=== PATIENT | female | born 1955 | race Caucasian/White ===

== ENCOUNTER 2024-10-14 14:50 | Outpatient (AMB) | payer MEDICARE, SELFPAY ==
--- NOTE | 2024-10-14 15:05 | MHC.OFFVIS ---
Vital Signs 10/14/24 15:08 Height 5 ft 2.5 in Weight 153 lb 3.54 oz BMI 27.6 BP 102/60 Blood Pressure Location Lt brachial Position Sitting Pulse 74 Pulse Source Pulse Oximeter Pulse Oximetry (%) 99 Oxygen Delivery Method Room Air Intake Visit Reasons: Abnormal CT/Pulmonary Nodule Allergies infliximab [From Remicade] Allergy (Severe, Verified 10/14/24 15:12) liver failure adalimumab [From Humira] Allergy (Intermediate, Verified 10/14/24 15:12) liver failure HPI Comments Details: The patient is here for pulmonary evaluation. The patient is a 69 year woman with a history of mild intermittent asthma in addition to colitis on Rinvoq who apparently was in her usual state health until back in August when she started developing worsening respiratory symptoms. The patient did undergo viral testing and she did test positive for RSV. In addition to that she did have a CTA which I personally reviewed at [facility] back on 08/31/2024 demonstrating multiple areas of pulmonary nodules. In addition to that some degree of mosaic pattern from pneumonitis and her bronchiolitis. I also did compare to the CT scan that she had back in 2019 of the abdomen with lung cuts appear much clear with a slight nodular density in the left lower lobe. The largest nodule measuring 7 mm in size. Therefore, will plan to repeat the CT scan in 6 months from the last CT scan. Clinically the patient is doing well she still uses her inhaler once or twice a day. I did offer her maintenance inhaler, but, she feels like she is getting better and feels like the regular inhaler is enough at this time. If her symptoms were to worsen she can always call and we can provide her maintenance inhaler at that time. [facility] Medical History (Updated 10/14/24 @ 15:45 by Tee Young MD) Pulmonary nodules Social History (Updated 10/14/24 @ 15:12 by Jenniffer Machado CMA) Patient Tobacco Use Status: Former Tobacco user Review of Systems Const Denies fever(s) Eyes Reports no additional complaints ENT Reports no additional complaints and Reports neck pain Card Denies chest pain Resp Reports cough and Reports wheezing GI Reports as per HPI Musc Reports back pain and Reports neck pain Skin/Breast Denies rash Neuro Reports no additional complaints Nathan/Lymph Reports no additional complaints Aller/Immun Reports wheezing Physical Exam Vital Signs: Last Vital Signs Pulse 74 10/14/24 15:08 BP 102/60 10/14/24 15:08 Pulse Ox 99 10/14/24 15:08 Oxygen Delivery Method Room Air 10/14/24 15:08 BMI result Body Mass Index 27.6 Const General: comfortable HEENT Head: Yes normocephalic Neck Neck: Yes supple Chest Chest palpation & inspection: normal inspection of the chest Resp Effort & Inspection: normal respiratory effort Auscultation: clear to auscultation bilaterally Cardio Heart sounds: S1 normal heart sound present and S2 normal heart sound present GI Palpation (GI): Soft to palpation Skin General skin exam: no rashes or lesions noted Extrem General: No clubbing and No cyanosis Assessment & Plan Assessment & Plan (1) Pulmonary nodules: Code(s): R91.8 - Other nonspecific abnormal finding of lung field Category: Medical Plan Repeat CT chest in 4 months F/U 4 months Orders: Orders CT chest wo IV con 4 Months R91.8 - Other nonspecific abnormal finding of lung field Coding Level of Care Code New Pt Level 4 (22629) Diagnoses Pulmonary nodules R91.8 Time Spent (min) 40
[2024-10-14 15:08] VITALS: BP 102/60; PULSE 74; O2SAT 99; BMI 27.6
--- OUTSIDE RECORDS SUMMARY | 2024-10-14 16:16 | XMS_ITS | Encounter Summary ---
Author Organization [facility] Address [address] [place] [address] Care Team Providers Care Silverware Assembler Name Role Phone Jed Brown MD Primary Care Provider + [phone] Reason for Visit * Auth/Cert (Routine) Specialty Diagnoses / Procedures Referred By Contac t Referred To Contact Diagnoses Spinal stenosis, cervical region CERVICAL SPINAL STENOSIS Procedures [facility] SP CORD WO FACETECTOMY/FORAMINOTOMY/DISC ECTOMY 1 OR 2 VERT SEGM CERV C4-5 posterior decompression Lizett Bradford MD [address] [place] [address] Phone: tel: fax: [facility] OR [address] [place] [id number] Phone: tel: Referral ID Status Reason Start Date Expiration Date Visits Re quested Visits Authorized [id number] 1 1 Encounter Details Date Type Department Care Team (Late st Contact Info) Description 09/26/2024 9:30 AM EST - 09/26/2024 11:30 AM EST Surgery [facility] Main OR [address] [place] [address] Lizett Bradford MD [address] [place] [address] C4-5 posterior decompression [03312 (CPT??)] Surgery Details Date/Time Status Location OR Service Patient Class Case Cl ass Case Type Trauma Case? 09/26/2024 9:30 AM Posted [facility] OR OR Neurosurgery Hospital Outpatient Surgery F - Elective Panel 1 Procedure LRB Anes Op Region Wound Class Comments C4-5 posterior decompression N/A general Spine Cervi santa Class I/ Clean Surgeon Surgeon Role Service Panel Lizett Bradford MD Primary Neurosurgery 1 Case Notes C-arm, midas, chest rolls documented in this encounter Social History Tobacco Use Types Packs/Day Years Used Date Smoking Tobacco: Former Smokeless Tobacco: Never Interpersonal Safety Answer Date Record ed Physical Abuse 09/26/2024 Verbal Abuse 09/26/2024 Comments No Sex and Gender Information Value Date Recorded Sex Assigned at Female 07/18/2024 10:24 AM EST Legal Sex Female 4:11 AM EST Gender Identity Female 07/18/2024 10:24 AM EST Sexual Orientation Straight 07/18/2024 10 :24 AM EST documented as of this encounter Last Filed Vital Signs Vital Sign Reading Time Taken Comments Blood Pressure 134/76 09/26/2024 7:56 AM EST Pulse 72 09/26/2024 7:56 AM EST Temperature 36.5 ??C (97.7 ??F) 09/26/2024 7:56 AM ES T Respiratory Rate 16 09/26/2024 7:56 AM EST Oxygen Saturation 100% 09/26/2024 7:56 AM EST Inhaled Oxygen Concentration - - Weight 67.1 kg (148 lb) 08/29/2024 9:00 AM EST Height 160 cm (5' 3 ) 08/29/2024 9:00 AM EST Body Mass Index 26.22 08/29/2024 9:00 AM EST documented in this encounter Discharge Instructions * Discharge Instructions* JADYN Gonzales - 09/26/2024 12:13 PM EST Ivelisse, I am unable to change the printed handout directions, but please only take your Dilaudid (hydromorphone) prescribed by your pain management doctor, do not take both prescriptions together. Please call the office to schedule your postop appointment for 10-14 days, #[phone]. Call withany concerns or questions, like wound redness, drainage, fevers, increasing pain or weakness. After your surgery we ask you to observe the following restrictions/guidelines: Activity: It is normal to feel some incisional pain or discomfort as you increase your activity, but that will improve with time. We ask you avoid heavy lifting or activities that cause pain. As a general rule, 8lbs is a safe limit for lifting right after surgery (approximately a gallon of milk). Walk as much as you feel comfortable but not to exhaustion. You will feel extra tired the first fewdays after surgery. Stay well hydrated. It is OK to walk up and down stairs a few times a day. You may return to driving when you are off narcotics (such as vicodin, oxycodone, dilaudid, etc), and you are back to normal functional capacity, and able to look in both directions. If you have any concerns please check with office before driving. Return to work is specific to each patient and each surgery, so please speak with your doctor/PA atfirst follow up. Please bring paperwork such as FMLA at that time if you need it filled out. Follow up: Please call the office, , after surgery to arrange a 10 day follow up for wound check. Wound Care: We generally ask that you keep your wound covered for the first 3 days after surgery. If you have kiara or sutures, please call the office when you get home to arrange follow up in 10 days to arrange removal of kiara/sutures. You may shower on post op day # 3 after removing your dressing. We ask that you do not let the water soak the wound. If it does get wet, just towel dry lightly. Please do not scrub your incision or place any type of chemical/ointment on the wound. No tub bath's, pools or jacuzzi's for one month. Medications: We will give you a short supply of narcotics after surgery (usually one week's worth). If you need more please call the office but do not use more than prescribed. If you are on a narcotic, it is a good idea to take a stool softener such as colace or senna to avoid constipation If you take blood thinner such as aspirin, Plavix, Coumadin, Effient, Eliquis etc for conditions such as Afib, DVT, Pulmonary embolus, coronary disease, stents etc please speak with your surgeon about specific details as to when you can resume these medications. If you take NSAID's such as Celebrex, Naproxen, Motrin, Aleve, Meloxicam etc we generally allow youto resume these on post op day 7, but if you had a spinal fusion please check with your surgeon before resuming these medications. * Attachments The following attachments cannot be sent through Care Everywhere. * Cervical Spinal Stenosis (Croatian) * General Anesthesia (Croatian) documented in this encounter Medications at Time of Discharge acetaminophen (TYLENOL 8 HOUR) 650 mg 8 hr tablet Take 2 Tablets by mouth. albuterol HFA (PROAIR HFA ; PROVENTIL HFA ; VENTOLIN HFA) 90 mcg/actuation inhaler Inhale 2 puffs by mouth every 6 (six) hours if needed for wheezing. alendronate (FOSAMAX) 35 mg tablet 1 Tablet. 08/24/2023 cholecalciferol (VITAMIN D-3) 25 mcg (1,000 unit) capsule Take 1 Capsule by mouth. cyanocobalamin (VITAMIN B-12) 100 mcg tablet Take 1 tablet (100 mcg total) by mouth 2 (two) times a day. cyproheptadine (PERIACTIN) 4 mg tablet Take 1 tablet (4 mg total) by mouth 2 (two) times a day if needed. famotidine (PEPCID) 20 mg tablet Take 1 Tablet by mouth. 09/20/2023 furosemide (LASIX) 20 mg tablet or 30 days 02/29/2024 HYDROmorphone (DILAUDID) 2 mg tablet TAKE 1 TABLET EVERY 4 TO 6 HOURS NEEDED. 11/07/2013 HYDROmorphone (DILAUDID) 2 mg tablet 1-2 tabs PO Q6 hours as needed for severe pain. 30 tablet 09/26/2024 levothyroxine (SYNTHROID, LEVOTHROID) 75 mcg tablet TAKE 1 TAB(S) ORALLY ONCE A DAY 04/05/2013 melatonin 3 mg tablet Take 1 Tablet by mouth. naloxone (NARCAN) 4 mg/0.1 mL nasal spray Administer 1 each (4 mg total) into affected nostril(s). 07/15/2022 ondansetron ODT (ZOFRAN-ODT) 8 mg disintegrating tablet TAKE 1 MG Daily 04/05/2013 upadacitinib (Rinvoq) 30 mg tablet extended release 24 hr Take by mouth. sulfamethoxazole-tr imethoprim (BACTRIM DS,SEPTRA DS) 800-160 mg per tablet Take 1 tablet by mouth 2 (two) times a day for 3 days. 6 each 09/26/2024 documented as of this encounter Ordered Prescriptions Prescription Sig Dispense Quantity Refills Last Filled Start Date End Date HYDROmorphone (DILAUDID) 2 mg tablet 1-2 tabs PO Q6 hours as needed for severe pain. 30 tablet 09/26/2024 sulfamethoxazole-t rimethoprim (BACTRIM DS,SEPTRA DS) 800-160 mg per tablet Take 1 tablet by mouth 2 (two) times a day for 3 days. 6 each 09/26/2024 09/29/2024 documented in this encounter Discharge Disposition Disposition Code Departure Means Destination Comment s Home or Self Care Wheelchair documented in this encounter Progress Notes * Megan Castaneda RN - 09/26/2024 2:28 PM EST Pain better and both arms without numbness and tremors * JADYN Gonzales - 09/26/2024 2:28 PM EST NEUROSURGERY PROGRESS NOTE: S: Patient doing well in PACU, VSS, denies headache, chest pain, shortness of breath, nausea. Minimal incisional pain. O: Patient is awake and alert, motor exam: good strength 5/5 bilaterally. Dressing CDI. Respirations unlabored. Heart has regular rate. BP: 146/88 (09/26 1326) Heart Rate: 82 (09/26 1326) Temp: 36.9 ??C (98.4 ??F) (09/26 1326) SpO2: 100 % (09/26 1326) O2 Flow Rate (L/min): 4 L/min (09/26 115) O2 Delivery Method: Simple mask (02/24 1155) A/P: Pt is s/p C4-5 posterior decompression, doing well in PACU, I gave small supply of Dilaudid tocover her until her next prescription refill. Gets monthly prescriptions from pain management, she states she is supposed to have 1 ready for pickup today, I tried calling her pharmacy, was unable toreach them. (I checked [facility], every month she gets 112 Dilaudid, last refilled 08/30/2024). All discharge instructions given to patient, questions answered. Plan is for discharge home today, asked her to call with any concerns or questions, we will see her in the office in 10 days. Jenniffer Turk PA-C documented in this encounter H&P Notes * Lizett Bradford MD - 09/26/2024 9:24 AM EST Vitals: 09/26/24 0756 BP: 134/76 Pulse: 72 Resp: 16 Temp: 36.5 ??C (97.7 ??F) SpO2: 100% A&O x 3 Palate clear without redness or exudate lungs CTA, HR regular Denies chest pain, fevers, productive cough. Has occasional shortness of breath due to asthma controlled with albuterol Procedure reviewed and all questions answered. Consent signed. Lizett Bradford MD Source Note - JADYN Huynh - 09/23/2024 4:06 PM EST NEW PATIENT CONSULTATION Date of Visit: 09/23/2024 Primary Care Physician: Jed Brown MD RE: Ivelsise Wasserman : 1955 Chief complaint: Hand weakness History of present illness: This is a 69-year-old woman who presented to our office with neck pain,dexterity issues, and feels like she drops things frequently. She feels like her hands are weak especially on the right side. She is no anger able to do things like knitting or mihai. Her legs feeljumpy when she is resting. She describes pain in the bilateral upper trapezius, radiating to the shoulders and outer arms the elbows.. Past Medical History: Diagnosis Date Autoimmune hepatitis (CMS/HCC) DX:Autoimmune hepatitis (HCC); COMMENT: Dx made at [facility] in 06/2012, incl liver bx and MRI.Begun on steroidsm, and f/u at [facility] in Aug. 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 Dr. Abreu Vitamin B12 deficiency DX:Vitamin B12 deficiency Past Surgical History: Procedure Laterality Date APPENDECTOMY N/A PROCEDURE: HISTORICAL APPENDECTOMY; COMMENT: 1990 BARIATRIC SURGERY CATARACT EXTRACTION CHOLECYSTECTOMY EYE SURGERY JOINT REPLACEMENT KNEE ARTHROPLASTY Right KNEE SURGERY Right PROCEDURE: HISTORICAL KNEE SURGERY; COMMENT: knee replacement - 10/14/23 OTHER SURGICAL HISTORY N/A PROCEDURE: HISTORY OTHER; COMMENT: Gallbladder - 1984 OTHER SURGICAL HISTORY N/A PROCEDURE: HISTORY OTHER; COMMENT: Gastro bypass - 2008 STEREOTACTIC CORE BIOPSY Left TONSILLECTOMY N/A PROCEDURE: HISTORICAL TONSILLECTOMY Allergies Allergen Reactions Adalimumab Blood Issues and GI intolerance Other reaction(s): liver failure (per patient's report) Other reaction(s): liver failure (per patient's report) Liver failure Liver failure Infliximab Bleeding and GI intolerance Other reaction(s): Liver failure Current Outpatient Medications Medication Instructions acetaminophen (TYLENOL 8 HOUR) 650 mg 8 hr tablet Take 2 Tablets by mouth. alendronate (FOSAMAX) 35 mg tablet 1 Tablet. cholecalciferol (VITAMIN D-3) 25 mcg (1,000 unit) capsule Take 1 Capsule by mouth. cyanocobalamin (VITAMIN B-12) 100 mcg tablet Take 1 tablet (100 mcg total) by mouth 2 (two) times aday. cyproheptadine (PERIACTIN) 4 mg, oral, 2 times daily PRN famotidine (PEPCID) 20 mg tablet Take 1 Tablet by mouth. furosemide (LASIX) 20 mg tablet or 30 days HYDROmorphone (DILAUDID) 2 mg tablet TAKE 1 TABLET EVERY 4 TO 6 HOURS NEEDED. levothyroxine (SYNTHROID, LEVOTHROID) 75 mcg tablet TAKE 1 TAB(S) ORALLY ONCE A DAY melatonin 3 mg tablet Take 1 Tablet by mouth. naloxone (NARCAN) 4 mg, nasal ondansetron ODT (ZOFRAN-ODT) 8 mg disintegrating tablet TAKE 1 MG Daily upadacitinib (Rinvoq) 30 mg tablet extended release 24 hr Take by mouth. Social History Tobacco Use Smoking status: Former Smokeless tobacco: Never Social History Social History Narrative Not on file Family History Problem Relation Name Age of Onset Other (Other: Other) Mother Lung cancer Father Review of systems was notable for moderate fatigue, numbness, blurred vision, weakness, balance issues, anemia, thyroid disease, history of UTIs, difficulty starting and stopping her stream, arm or leg weakness, arm or leg pain, joint pain or swelling, arthritis, wearing glasses, having cataracts, hearing loss, ringing in the ears, nasal congestion, sinus issues, balance issues, irregular pulse, heart murmur, swelling in the hands or feet, shortness of breath, nausea and vomiting, liver disease, abdominal pain, change in bowel habits, skin disease, autoimmune disease Physical Exam On physical examination, the patient is 5 feet 3 inches tall and weighs 152 pounds. She is awake and alert. Speech and comprehension are intact. Respirations are unlabored. Heart has a regular rate. Motor exam revealed good strength resistance bilaterally in the upper and lower extremities while seated the exception being the right hand sewer pipe offbearer which was weak at 4+/5.. There was some general deconditioning noted. She has a fine tremor bilaterally in the hands. Reflexes are within normal limits. There is no hyperreflexia. There is no Joi's or clonus. There were no cutaneous abnormalities noted over the neck or back. She had pain with palpation over the right posterior shoulder, upper trapezius, midline cervical spine greater than in the lumbar spine. She was ambulating with an antalgic gait bent forward kyphotic posture. Imaging Diagnostic studies include an MRI of the cervical spine August 04, 2024 at [facility]. This did reveal degenerative disc disease at C4-5, C5-6, and C6- 7 with thickening of the posterior ligament at C4-5 causing some central stenosis at that level. Assessment/Plan Impression is cervical stenosis The plan is for a C4-5 posterior cervical decompression. The planned procedure, risks, and benefitshave been explained to the patient in detail. She is asked appropriate questions, appears to understand, and wishes to proceed with surgery. JADYN Huynh on 09/23/2024 at 4:06 PM EST CC: No ref. provider found Jed Brown MD [facility] * JADYN Huynh - 09/23/2024 4:06 PM EST NEW PATIENT CONSULTATION Date of Visit: 09/23/2024 Primary Care Physician: Jed Brown MD RE: Ivelisse Wasserman : 1955 Chief complaint: Hand weakness History of present illness: This is a 69-year-old woman who presented to our office with neck pain,dexterity issues, and feels like she drops things frequently. She feels like her hands are weak especially on the right side. She is no anger able to do things like knitting or mihai. Her legs feeljumpy when she is resting. She describes pain in the bilateral upper trapezius, radiating to the shoulders and outer arms the elbows.. Past Medical History: Diagnosis Date Autoimmune hepatitis (CMS/HCC) DX:Autoimmune hepatitis (HCC); COMMENT: Dx made at [facility] in 06/2012, incl liver bx and MRI.Begun on steroidsm, and f/u at [facility] in Aug. 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); COMMENT: Psoriatic arthritis (CMS/HCC) DX:Psoriatic arthritis (HCC); COMMENT: DermEvan Abreu Vitamin B12 deficiency DX:Vitamin B12 deficiency Past Surgical History: Procedure Laterality Date APPENDECTOMY N/A PROCEDURE: HISTORICAL APPENDECTOMY; COMMENT: 1990 BARIATRIC SURGERY CATARACT EXTRACTION CHOLECYSTECTOMY EYE SURGERY JOINT REPLACEMENT KNEE ARTHROPLASTY Right KNEE SURGERY Right PROCEDURE: HISTORICAL KNEE SURGERY; COMMENT: knee replacement - 10/14/23 OTHER SURGICAL HISTORY N/A PROCEDURE: HISTORY OTHER; COMMENT: Gallbladder - 1984 OTHER SURGICAL HISTORY N/A PROCEDURE: HISTORY OTHER; COMMENT: Gastro bypass - 2008 STEREOTACTIC CORE BIOPSY Left TONSILLECTOMY N/A PROCEDURE: HISTORICAL TONSILLECTOMY Allergies Allergen Reactions Adalimumab Blood Issues and GI intolerance Other reaction(s): liver failure (per patient's report) Other reaction(s): liver failure (per patient's report) Liver failure Liver failure Infliximab Bleeding and GI intolerance Other reaction(s): Liver failure Current Outpatient Medications Medication Instructions acetaminophen (TYLENOL 8 HOUR) 650 mg 8 hr tablet Take 2 Tablets by mouth. alendronate (FOSAMAX) 35 mg tablet 1 Tablet. cholecalciferol (VITAMIN D-3) 25 mcg (1,000 unit) capsule Take 1 Capsule by mouth. cyanocobalamin (VITAMIN B-12) 100 mcg tablet Take 1 tablet (100 mcg total) by mouth 2 (two) times aday. cyproheptadine (PERIACTIN) 4 mg, oral, 2 times daily PRN famotidine (PEPCID) 20 mg tablet Take 1 Tablet by mouth. furosemide (LASIX) 20 mg tablet or 30 days HYDROmorphone (DILAUDID) 2 mg tablet TAKE 1 TABLET EVERY 4 TO 6 HOURS NEEDED. levothyroxine (SYNTHROID, LEVOTHROID) 75 mcg tablet TAKE 1 TAB(S) ORALLY ONCE A DAY melatonin 3 mg tablet Take 1 Tablet by mouth. naloxone (NARCAN) 4 mg, nasal ondansetron ODT (ZOFRAN-ODT) 8 mg disintegrating tablet TAKE 1 MG Daily upadacitinib (Rinvoq) 30 mg tablet extended release 24 hr Take by mouth. Social History Tobacco Use Smoking status: Former Smokeless tobacco: Never Social History Social History Narrative Not on file Family History Problem Relation Name Age of Onset Other (Other: Other) Mother Lung cancer Father Review of systems was notable for moderate fatigue, numbness, blurred vision, weakness, balance issues, anemia, thyroid disease, history of UTIs, difficulty starting and stopping her stream, arm or leg weakness, arm or leg pain, joint pain or swelling, arthritis, wearing glasses, having cataracts, hearing loss, ringing in the ears, nasal congestion, sinus issues, balance issues, irregular pulse, heart murmur, swelling in the hands or feet, shortness of breath, nausea and vomiting, liver disease, abdominal pain, change in bowel habits, skin disease, autoimmune disease Physical Exam On physical examination, the patient is 5 feet 3 inches tall and weighs 152 pounds. She is awake and alert. Speech and comprehension are intact. Respirations are unlabored. Heart has a regular rate. Motor exam revealed good strength resistance bilaterally in the upper and lower extremities while seated the exception being the right hand sewer pipe offbearer which was weak at 4+/5.. There was some general deconditioning noted. She has a fine tremor bilaterally in the hands. Reflexes are within normal limits. There is no hyperreflexia. There is no Joi's or clonus. There were no cutaneous abnormalities noted over the neck or back. She had pain with palpation over the right posterior shoulder, upper trapezius, midline cervical spine greater than in the lumbar spine. She was ambulating with an antalgic gait bent forward kyphotic posture. Imaging Diagnostic studies include an MRI of the cervical spine August 04, 2024 at [facility]. This did reveal degenerative disc disease at C4-5, C5-6, and C6- 7 with thickening of the posterior ligament at C4-5 causing some central stenosis at that level. Assessment/Plan Impression is cervical stenosis The plan is for a C4-5 posterior cervical decompression. The planned procedure, risks, and benefitshave been explained to the patient in detail. She is asked appropriate questions, appears to understand, and wishes to proceed with surgery. JADYN Huynh on 09/23/2024 at 4:06 PM EST CC: No ref. provider found Jed Brown MD [facility] [place] documented in this encounter Procedure Notes * Mena Centeno RN - 09/26/2024 1:37 PM EST Pt. Ambulated to BR and voided 600 ml clear yellow urine, Pvr 0 , Neuros intact torres well * Lizett Bradford MD - 09/26/2024 10:56 AM EST C4-5 posterior decompression OPERATIVE NOTE Date: 09/26/2024 Location: [facility] OR Name: Ivelisse Wasserman, : 1955, Diagnosis Pre-op Diagnosis * Spinal stenosis, cervical region [M48.02] Post-op Diagnosis * Spinal stenosis, cervical region [M48.02] Procedures C4-5 posterior decompression 69315 - [facility] [facility] SP CORD WO FACETECTOMY/FORAMINOTOMY/DISCECTOMY 1 OR 2 VERT SEGM CERV Indications: Ivelisse Wasserman is an 69 y.o. female who is having surgery for CERVICAL SPINAL STENOSIS. Surgeon(s) & Temporary Administrative Assistant(s) * Lizett Bradford MD - Primary Physician Temporary Administrative Assistant: JADYN Gonzales Anesthesia: general Findings: 2 g of Ancef were given, urine output not measured Fluids: 1 L Estimated Blood Loss: 15 mL Drains: None Specimen: C4-5 bone and ligament Specimens ID Source Type Tests Collected By Collected At [facility]? Priority Lab ID 1 Spine, Cervical Bone TISSUE EXAM Lizett Bradford MD 09/26/24 1013 No Description: POSTERIOR C4-5 BONE AND LIGAMENT Procedure Details: After obtaining consent, the patient was brought to the operating room, successfully intubated thenpositioned prone on chest rolls with her head and neck in gentle flexion in the prone view and the shoulders and back taped down. The back of the neck was prepped and draped in standard sterile fashion. A spinal needle was introduced in the midline to note the C4 level on lateral fluoroscopy. A midline incision was marked and infiltrated with 1% lidocaine with epinephrine, incised sharply and a standard subperiosteal dissection carried down exposing the spinous processes and lamina. A repeat lateral image was taken with an Allis clamp on the more cranial spinous process and this was confirmedto be placed at C4-[address] Barrios of radiology. This was marked with the Bovie and marking pen thena self-retaining retractor system placed. The intervening ligaments between the adjacent levels were resected then the spinous process of C4 removed with a Leksell. Bilateral laminar troughs were created at both levels with the Midas drill until the midline bone could be removed. All of the dorsal ligament was resected with a 2 mm Kerrison after developing the plane between it and the dura with aPenfield 4. The lateral bone edges were made smoothed with a Kerrison so there was no further compression. Any ligament under the caudal edge of C3 and cranial edge of C5 was also resected with a Butler boris. Thrombin Gelfoam was used for epidural hemostasis, minor muscle bleeding controlled bipolar cautery and the wound copiously irrigated. This now appeared quite dry and it was not felt necessary to leave a drain. The incision was closed with an 0 Vicryl running stitch in the fascia, 2-0 Vicryl interrupteds in the subcutaneous layer then skin kiara were applied and dry sterile dressing placed. The PA in this case assisted with maintenance of exposure with irrigation and suction and closure of the incision. Complications: None; patient tolerated the procedure well. Disposition: PACU - hemodynamically stable. Condition: stable Lizett Bradford MD * Megan Castaneda RN - 09/26/2024 8:17 AM EST [facility] [phone] documented in this encounter Plan of Treatment Scheduled Orders Name Type Priority Associated Diagnoses Orde r Schedule ECG 12 lead - Procedural (No Charge) ECG Routine Once for 1 Occur rences starting 09/26/2024 until 09/26/2024 EKG 12 lead ECG Routine Once for 1 Oc currences starting 09/26/2024 until 09/26/2024 documented as of this encounter Procedures Procedure Name Priority Date/Time Associated Diagnosis Comments XR SPINE 1 VIEW Routine 09/26/2024 11:29 AM EST TISSUE EXAM Routine 09/26/2024 10:13 AM EST Spinal stenosis, cervical region [place] DE [place] SP CORD WO FACETECTOMY/FORAMI NOTOMY/DISCECTOMY 1 OR 2 VERT SEGM CERV 09/26/2024 9:52 AM EST Spinal stenosis, cervical region Case Notes C-arm, midas, chest rolls PROCEDURAL ECG Routine 09/26/2024 9:18 AM EST documented in this encounter Results * XR Spine 1 View (09/26/2024 11:29 AM EST) Anatomical Region Laterality Modality Spine Radio Fluoroscop y 09/26/2024 11:3 2 AM EST Impressions 09/26/2024 11:35 AM EST The first image demonstrates the presence of a metallic probe projecting posterior to the C4-5 interspace. Code 10732 The dose-area product for this procedure was 15.07 uGy*m2. PQRI CPT II G9500 -------- FINAL REPORT -------- Dictated By: Rodrigo Melendez Dictated Date: 09/26/2024 11:32 ET Assigned Physician: Rodrigo Melendez Reviewed and Electronically Signed By: Rodrigo Melendez Signed Date: 09/26/2024 11:35 ET Workstation ID: [id number] Transcribed By: Self Edit Transcribed Date: 09/26/2024 11:32 ET Narrative 09/26/2024 11:35 AM EST HISTORY: The patient is a 69-year-old female undergoing cervical spine surgery. FINDINGS: 2 fluoroscopic spot radiographs of the cervical spine obtained in the operating room are submitted. The first image demonstrates a metallic probe projecting posterior to the C4-5 interspace. No metallic probe is seen in the second image. The alignment of the included bony structures is anatomic. No fracture is seen. Procedure Note Rodrigo Melendez MD - 09/26/2024 HISTORY: The patient is a 69-year-old female undergoing cervical spinesurgery. FINDINGS: 2 fluoroscopic spot radiographs of the cervical spine obtainedin the operating room are submitted. The first image demonstrates ametallic probe projecting posterior to the C4-5 interspace. No metallicprobe is seen in the second image. The alignment of the included bonystructures is anatomic. No fracture is seen. IMPRESSION: The first image demonstrates the presence of a metallic probe projectingposterior to the C4-5 interspace. Code 70758 The dose-area product for this procedure was 15.07 uGy*m2. PQRI CPT II G9500 -------- FINAL REPORT -------- Dictated By: Rodrigo Melendez Dictated Date: 09/26/2024 11:32 ET Assigned Physician: Rodrigo Melendez Reviewed and Electronically Signed By: Rodrigo Melendez Signed Date: 09/26/2024 11:35 ET Workstation ID: [id number] Transcribed By: Self Edit Transcribed Date: 09/26/2024 11:32 ET us Lizett Bradford MD IMG XR PROCEDURES Final Result * Tissue exam (09/26/2024 10:13 AM EST) Final Diagnosis Spine, posterior, bone and ligament [id number] n: -BONE, CARTILAGE AND FIBROELASTIC TISSUE WITH DEGENERATIVE CHANGES 09/28/2024 1:36 PM [facility] Gross Description A. Spine, Cervical, posterior bone and ligament C4-5: Labeled posterior cervical . Received in blood-tinged formalin, is a 3.0 x 2.0 x 1.0 cm aggregate of rubbery to hard, hong-pink to red, focally cauterized to minimally blue-stained portions of shredded tissue and bone. The specimen is sectioned and order entry representative sections are submitted in one cassette, multiple pieces, following decalcification. TS 09/28/2024 1:36 PM [facility] Disclaimer Unless otherwise specified, all tissue is 10% NB formalin fixed and paraffin embedded. 09/28/2024 1:36 PM [facility] Bone Structure of cervical vertebral column / Unknown 09/26/2024 10:13 AM EST 09/26/2024 12:48 PM EST us Lizett Bradford MD LAB PATHOLOGY ORDERABLES Final Result [facility] [place] ([facility] [address] [place] [address], [place] [phone] * ECG 12 lead - Procedural (No Charge) (09/26/2024 9:18 AM EST) Ventricular Rate ECG 76 BPM GEMUSE Atrial Rate 76 BPM GEMUSE P-R Interval 174 ms GEMUSE QRS Duration 60 ms GEMUSE Q-T Interval 386 ms GEMUSE QTc 434 ms GEMUSE P Wave [place] 46 degrees GEMUSE R [place] 5 degrees GEMUSE T [place] 39 degrees GEMUSE ECG Interpretation Sinus rhythm with Premature supraventricular complexes Possible Left atrial enlargement Low voltage QRS Septal infarct (cited on or before 01-SEP-2023) Abnormal ECG When compared with ECG of 01-SEP-2023 09:31, Premature supraventricular complexes are now Present Questionable change in initial forces of Septal leads Confirmed by KIARA JAMISON ([id number]) on 09/27/2024 8:29:57 AM GEMUSE 09/26/2024 9:18 AM EST 09/27/2024 8:29 AM EST us Terrance Nash MD ECG ORDERABLES Final Result GEMUSE documented in this encounter Visit Diagnoses Diagnosis Spinal stenosis, cervical region- Primary Spinal stenosis, cervical region documented in this encounter Admitting Diagnoses Diagnosis Spinal stenosis, cervical region documented in this encounter Administered Medications Inactive Administered Medications - up to 3 most recent administrations Medication Order MAR Action Action Date Dose Rate Site acetaminophen (TYLENOL) tablet 1,000 mg 1,000 mg, oral, Once as needed, mild pain, Starting on Thu09/26/24 at 1338, For 1 dose, Phase II/On Unit, If patient has not received tylenol in the last 6 hours Given 09/26/2024 1:52 PM EST 1,000 mg dexAMETHasone (DECADRON) injection 8 mg 8 mg, intravenous, Once, On Thu09/26/24 at 0815, For 1 dose, Preprocedure Given 09/26/2024 8:26 AM EST 8 mg diphenhydrAMINE (BENADRYL) injection 12.5 mg 12.5 mg, intravenous, Once as needed, nausea and vomitting, Starting on Thu09/26/24 at 1338, For 1 dose, Phase II/On Unit, Give as THIRD antiemetic in order set. Only if this has not been given in the operating room or in PACU. haloperidol lactate (HALDOL) injection 1 mg 1 mg, intravenous, Once as needed, nausea and vomitting, Starting on Thu09/26/24 at 1338, For 1 dose, Phase II/On Unit, Give as SECOND antiemetic in order set. Only if this has not been given in the operating room or in PACU. May be ordered via either intramuscular or intravenous route. If ordered IV, maximum of 5 mg/minute. lactated Ringer's infusion 75 mL/hr, intravenous, Continuous, Starting on Thu09/26/24 at 0845, Preprocedure Continued from OR 09/26/2024 11:55 AM EST 75 mL/hr 75 mL/hr New Bag 09/26/2024 8:25 AM EST 75 mL/hr 75 mL/hr lidocaine-EPINEPHrine (XYLOCAINE W/EPI) 1 %-1:100,000 injection As needed, Starting on Thu09/26/24 at 1104, Intraprocedure Given 09/26/2024 10:55 AM EST 4 mL ondansetron (PF) (ZOFRAN) injection 4 mg 4 mg, intravenous, Once as needed, nausea, vomiting, Starting on Thu09/26/24 at 1338, For 1 dose, Phase II/On Unit, Give as FIRST antiemetic in order set Infuse over 2 minutes. oxyCODONE (ROXICODONE) immediate release tablet 5 mg 5 mg, oral, Once as needed, moderate pain, Starting on Thu09/26/24 at 1338, For 1 dose, Phase II/On Unit Given 09/26/2024 1:51 PM EST 5 mg sodium chloride 0.9 % flush 10 mL 10 mL, intravenous, 2 times daily, First dose on Thu09/26/24 at 0900, Preprocedure sodium chloride 0.9 % flush 10 mL 10 mL, intravenous, As needed, line care, Starting on Thu09/26/24 at 0817, Preprocedure thrombin topical solution As needed, Starting on Thu09/26/24 at 1105, Intraprocedure Given 09/26/2024 10:55 AM EST 10,000 Units documented in this encounter Discontinued Medications Medication Sig Discontinue Reason Start Date End Da te ergocalciferol (VITAMIN D-2) 1,250 mcg (50,000 unit) capsule Take 1 capsule (50,000 Units total) by mouth. 08/29/2024 documented as of this encounter Historical Medications * This list may reflect changes made after this encounter. albuterol HFA (PROAIR HFA ; PROVENTIL HFA ; VENTOLIN HFA) 90 mcg/actuation inhaler Inhale 2 puffs by mouth every 6 (six) hours if needed for wheezing. added in this encounter Active and Recently Administered Medications Times are shown in EST. Scheduled Medication Order 09/24/2024 09/25/2024 09/26/2024 ceFAZolin (ANCEF) 2 g in sterile water 20 mL IV syringe (COMPLETED) 2 g, intravenous, Administer over 3 Minutes, Once, On Thu09/26/24 at 0815, For 1 dose, Preprocedure, -IV Push over 3 minutes -Administer within 60 minutes of incision, Indication: Prophylaxis-Surgical 0829 (Handoff - Prov ider: Megan Castaneda RN)1034 (New Bag - Provider: GODWIN Mary) dexAMETHasone (DECADRON) injection 8 mg (COMPLETED) 8 mg, intravenous, Once, On Thu09/26/24 at 0815, For 1 dose, Preprocedure 0826 (Given - Provid er: Megan Castaneda RN) sodium chloride 0.9 % flush 10 mL(Linked Group 1) 10 mL, intravenous, 2 times daily, First dose on Thu09/26/24 at 0900, Preprocedure 0900 (Canceled Entry - Provider: Automatic Discharge Provider - Comment: Automatically canceled at discontinue of medication order) Continuous Medication Order 09/24/2024 09/25/2024 09/26/2024 lactated Ringer's infusion 75 mL/hr, intravenous, Continuous, Starting on Thu09/26/24 at 0845, Preprocedure 0825 (New Bag - Prov ider: Megan Castaneda RN)0950 (Canceled Entry - Provider: GODWIN Mary)1055 (Anesthesia Volume Adjustment - Provider: GODWIN Mary)1127 (Stopped - Provider: GODWIN Mary)1155 (Continued from OR - Provider: Joan Palmer RN (Dee) - Comment: 600ml in bag on arrival to pacu)1633 (Due: Stopped) PRN Medication Order 09/24/2024 09/25/2024 09/26/2024 acetaminophen (TYLENOL) tablet 1,000 mg (COMPLETED) 1,000 mg, oral, Once as needed, mild pain, Starting on Thu09/26/24 at 1338, For 1 dose, Phase II/On Unit, If patient has not received tylenol in the last 6 hours 1352 (Given - Provid er: Mena Centeno RN) diphenhydrAMINE (BENADRYL) injection 12.5 mg 12.5 mg, intravenous, Once as needed, nausea and vomitting, Starting on Thu09/26/24 at 1338, For 1 dose, Phase II/On Unit, Give as THIRD antiemetic in order set. Only if this has not been given in the operating room or in PACU. haloperidol lactate (HALDOL) injection 1 mg 1 mg, intravenous, Once as needed, nausea and vomitting, Starting on Thu09/26/24 at 1338, For 1 dose, Phase II/On Unit, Give as SECOND antiemetic in order set. Only if this has not been given in the operating room or in PACU. May be ordered via either intramuscular or intravenous route. If ordered IV, maximum of 5 mg/minute. lidocaine-EPINEPHrine (XYLOCAINE W/EPI) 1 %-1:100,000 injection (CANCELED) As needed, Starting on Thu09/26/24 at 1104, Intraprocedure 1055 (Given - Provid er: Lizett Bradford MD - Comment: OPERATIVE SITE/POSTERIOR NECK(C4-5)) ondansetron (PF) (ZOFRAN) injection 4 mg 4 mg, intravenous, Once as needed, nausea, vomiting, Starting on Thu09/26/24 at 1338, For 1 dose, Phase II/On Unit, Give as FIRST antiemetic in order set Infuse over 2 minutes. oxyCODONE (ROXICODONE) immediate release tablet 5 mg (COMPLETED) 5 mg, oral, Once as needed, moderate pain, Starting on Thu09/26/24 at 1338, For 1 dose, Phase II/On Unit 1351 (Given - Provid er: Mena Centeno RN) sodium chloride 0.9 % flush 10 mL(Linked Group 1) 10 mL, intravenous, As needed, line care, Starting on Thu09/26/24 at 0817, Preprocedure thrombin topical solution (CANCELED) As needed, Starting on Thu09/26/24 at 1105, Intraprocedure 1055 (Given - Provid er: Lizett Bradford MD - Comment: OPERATIVE SITE POSTERIOR NECK(C4-5)10,000UNITS THROMBIN MIXED WITH 1 GRAM GELFOAM POWDER) Linked Groups Order Group 1: Insert peripheral IV (CANCELED) STAT, Once, On Thu09/26/24 at 0818, For 1 occurrence, Preprocedure And Maintain IV access (CANCELED) Until discontinued, Starting on Thu09/26/24 at 0818, Until Specified, Preprocedure And Saline lock IV (CANCELED) Routine, Once, On Thu09/26/24 at 0818, For 1 occurrence, Preprocedure And sodium chloride 0.9 % flush 10 mLJump to med 10 mL, intravenous, 2 times daily, First dose on Thu09/26/24 at 0900, Preprocedure And sodium chloride 0.9 % flush 10 mLJump to med 10 mL, intravenous, As needed, line care, Starting on Thu09/26/24 at 0817, Preprocedure documented in this encounter Orders Medications Ordered That Rafael ht Not Have Been Administered Count Last Ordered Date First Ordered Date ceFAZolin (ANCEF) 2 g in ritu rile water 20 mL IV syringe 09/26/2024 diphenhydrAMINE (BENADRYL) i njection 12.5 mg 09/26/2024 fentaNYL (PF) (SUBLIMAZE) injection 50 mcg 09/26/2024 haloperidol lactate (HALDOL) injection 1 mg 09/26/2024 HYDROmorphone (PF) injection 0.5 mg 1 09/26 lactated Ringer's infusion 1 09/26/2024 ondansetron (PF) (ZOFRAN) injection 4 mg 1 09/26/2024 oxyCODONE (ROXICODONE) immed iate release tablet 5 mg 1 09/26/2024 sodium chloride 0.9 % flush 10 mL 2 025 Discharge Count Last Ordered Date First Orde red Date DISCHARGE PATIENT 1 09/26/2024 documented in this encounter Care Teams Silverware Assembler Relationship Specialty Start Date End Date Jed Brown MD [address] [place] [address] PCP - General Internal Medicine 07/04/24 documented as of this encounter
--- OUTSIDE RECORDS SUMMARY | 2024-10-14 16:16 | XMS_ITS | Encounter Summary ---
Author Organization [facility] Address [address] [place] [address] Care Team Providers Care Pull Through Hooker Name Role Phone Jed Brown MD Primary Care Provider + [phone] Reason for Visit * Reason Comments Post-op S/p C4-5 decompressi on Encounter Details Date Type Department Care Team (Late st Contact Info) Description 10/06/2024 2:00 PM EST Office Visit [place]surgery [place] [facility] [address] [place] [phone] Benny Stephens PA [address] [facility] [address] [place] [address] Cervical spondylosis (Primary Dx) Social History Tobacco Use Types Packs/Day Years Used Date Smoking Tobacco: Former Smokeless Tobacco: Never Tobacco Cessation:Counseling Given: Not Answered Interpersonal Safety Answer Date Record ed Physical [...] Sign Reading Time Taken Comments Blood Pressure - - Pulse - - Temperature - - Respiratory Rate - - Oxygen Saturation - - Inhaled Oxygen Concentration - - Weight 67.1 kg (148 lb) 10/06/2024 1:57 PM EST Height 160 cm (5' 3 ) 10/06/2024 1:57 PM EST Body Mass Index 26.22 10/06/2024 1:57 PM EST documented in this encounter Progress Notes * JADYN Huynh - 10/06/2024 2:45 PM ESTAssociated Problem(s): Cervical spondylosis Patient is about 10 days status post C4-5 decompression. Since the surgery she feels like her handsworked better and she has less arm pain. On examination, she is neurologically intact. Her incisionis healing nicely. I removed her wilbert today. She is pleased with her early postoperative resultsand I would agree with her. She will follow-up with Dr. Bradford on an as-needed basis. * JADYN Huynh - 10/06/2024 2:00 PM EST NEUROSURGERY POST OP VISIT Date of Visit: 10/06/2024 Referring Physician: Jed Brown MD Primary Care Physician: Jed Brown MD RE: Ivelisse Grimaldo Rehbein : 1955 Ivelisse Grimaldo Rehbein is about 10 days s/p C4-5 decompression. She denies wound drainage, fevers, sweats/chills or bowel bladder issues. Med rec list reviewed. Current Outpatient Medications Medication Instructions acetaminophen (TYLENOL 8 HOUR) 650 mg 8 hr tablet Take 2 Tablets by mouth. albuterol HFA (PROAIR HFA ; PROVENTIL HFA ; VENTOLIN HFA) 90 mcg/actuation inhaler 2 puffs, Every 6hours PRN alendronate (FOSAMAX) 35 mg tablet 1 Tablet. [...] TABLET EVERY 4 TO 6 HOURS NEEDED. HYDROmorphone (DILAUDID) 2 mg tablet 1-2 tabs PO Q6 hours as needed for severe pain. levothyroxine (SYNTHROID, LEVOTHROID) 75 mcg tablet TAKE 1 TAB(S) ORALLY ONCE A DAY melatonin 3 mg tablet Take 1 Tablet by mouth. naloxone (NARCAN) 4 mg, nasal ondansetron ODT (ZOFRAN-ODT) 8 mg disintegrating tablet TAKE 1 MG Daily upadacitinib (Rinvoq) 30 mg tablet extended release 24 hr Take by mouth. EXAM: On exam, she is awake and alert. Speech and comprehension are intact. Respirations are unlabored. Heart had a regular rate. Motor exam reveals good strength to resistance bilaterally. Incision is closed with wilbert, healing well, with no sign of infection. Pt is ambulating independently with a slightly hunched over posture. Wilbert were removed out incident. Problem List Items Addressed This Visit Cervical spondylosis - Primary Patient is about 10 days status post C4-5 decompression. Since the surgery she feels like her handsworked better and she has less arm pain. On examination, she is neurologically intact. Her incisionis healing nicely. I removed her wilbert today. She is pleased with her early postoperative resultsand I would agree with her. She will follow-up with Dr. Bradford on an as-needed basis. All questions answered. she will call with any questions. JADYN Huynh on 10/06/2024 at 2:45 PM EST [facility] [place] documented in this encounter Plan of Treatment Not on file documented as of this encounter Visit Diagnoses Diagnosis Cervical spondylosis- Primary Cervical spondylosis without myelopathy documented in this encounter Care Teams Pull Through Hooker Relationship Specialty Start Date End Date Jed Brown MD [address] [place] [phone] PCP - General Internal Medicine 07/04/24 documented as of this encounter
--- OUTSIDE RECORDS SUMMARY | 2024-10-14 16:16 | XMS_ITS | Encounter Summary ---
Author Organization [facility] Address [address] [place] [address] Care Team Providers Care Validation Software Facilitator Name Role Phone Jed Brown MD Primary Care Provider + [phone] Reason for Visit * Auth/Cert (Routine) Specialty Diagnoses / Procedures Referred By Contac t Referred To Contact Diagnoses Spinal stenosis, cervical region CERVICAL SPINAL STENOSIS Procedures WI DE [place] SP CORD WO FACETECTOMY/FORAMINOTOMY/DISC ECTOMY 1 OR 2 VERT SEGM CERV C4-5 posterior decompression Lizett Bradford MD [address] [place] [address] Phone: tel: fax: [facility] OR [address] [place] [address] Phone: tel: Referral ID Status Reason Start Date Expiration Date Visits Re quested Visits Authorized [id number] 1 1 Encounter Details Date Type Department Care Team (Late st Contact Info) Description 09/26/2024 9:50 AM EST Anesthesia Event [facility] Main OR [address] [place] [address] Terrance Nash MD [address] [place] [address] [address] Greg Grier SRNA Anesthesia Record Procedure Summary Procedure Name Responsible Anesthesiologist Anesthesia Start Time Anesthesia Stop Time C4-5 posterior decompression (Spine Cervical) Terrance Nash MD 09/26/24 0950 09/26/24 1153 Events Date Time Event Comment 09/26/2024 0817 0950 An Start 0952 In Room 0953 An Start Data The patient wa s reevaluated immediately before moderate or deep sedation use and before anesthesia induction. 1002 An Induction 1005 An Intubation SRNA managed a irway under close supervision of the REFERENCE LIBRARIAN & Strip Stamp Straightener. 1 successful attempt w/ the glidescope to maintain neutral neck position, ETT placement verified, airway secured, no soft tissue trauma incurred, VSS. SUHA Matt 1026 an maria del carmen now Patient reposit ioned from supine to prone position w/ neutral alignment maintained to head/neck/shoulders/arms/hands/hips, BBS present, goose-neck circuit field spec in place, prone-view face pillow in use, eyes/ears/lips/chin free from pressure, sticker pulse-ox monitor on finger, safety belt & arm straps in place. Circulating RN, SRNA & HOT cylinder steamer(s) participated in positioning. SUHA Matt 1030 Anesthesia Ready 1056 Proc Start 1137 Proc Fin 1137 an maria del carmen now Flipped from pr one to supine. 1144 An Extubation 1145 an stop data 1145 Out of Room 1153 Handoff to RN I completed my handoff to the receiving nurse during which we: 1. Identified the patient 2. Identified the responsible provider 3. Reviewed the pertinent medical history 4. Discussed the surgical course 5. Reviewed intra-op anesthesia management and issues during anesthesia 6. Set expectations for post-procedure period 7. Allowed opportunity for questions and acknowledgement of understanding. 1153 An Stop Meds Name Total fentaNYL (SUBLIMAZE) injection 100 mcg propofol (DIPRIVAN) injection 10 mg/mL 2 00 mg rocuronium 100 mg ondansetron 2 mg/mL 4 mg glycopyrrolate 0.2 mg/mL 0.2 mg lidocaine PF (XYLOCAINE-MPF) local injec tion 2% 100 mg ketamine (KETALAR) injection 50 mg/mL sy ringe 25 mg sugammadex (BRIDION) injection 100 mg/mL 200 mg HYDROmorphone (DILAUDID) injection 2 mg/ mL 1 mg ceFAZolin (ANCEF) 2 g in sterile water 2 0 mL IV syringe 2 g lactated Ringer's infusion 950 mL lactated Ringer's infusion 400 mL * Agents Name O2 * Blood No blood administrations on file. Lines, Drains, and Airways Type Details Placement Removal Wound 09/26/24; 1055; N; N salazar (POSTERIOR NECK (C4-5 )); Posterior 09/26/24 1055 by Monika Scott RN Peripheral IV Placement Date: 09/04 11/25; Placement Time: 0825; Catheter Size: 20 G; Orientation: Anterior, Right; Location: Forearm; Insertion Attempts: 1; Patient Tolerance: Tolerated well; Removal Date: 09/26/24; Removal Time: 1427 09/26/24 0825 by Megan Castaneda RN 09/26/24 142 by Mena Centeno RN ETT Placement Date: 09/04 11/25; Placement Time: 1009 (created via procedure documentation); Mask Ventilation: 2; Technique: Video laryngoscopy (Elective); Type: ETT; Cuffed: Yes; Blade Size: 3; Location: Oral; Insertion Attempts: 1; Placement Verification: Auscultation, Capnometry; Removal Date: 09/26/24; Removal Time: 1144 09/26/24 1009 by GODWIN Mary 09/26/24 1144 by GODWIN Mary documented in this encounter Social History Tobacco [...] AM EST documented as of this encounter Progress Notes * GODWIN Mary - 09/26/2024 11:54 AM EST Patient: Ivelisse Wasserman Procedure Summary Date: 09/26/24 Room / Location: [facility] OR / [facility] OR Anesthesia Start: 949 Anesthesia Stop: 1153 Procedure: C4-5 posterior decompression (Spine Cervical) Diagnosis: Spinal stenosis, cervical region (CERVICAL SPINAL STENOSIS) Surgeons: Lizett Bradford MD Responsible Provider: Terrance Nash MD Anesthesia Type: general ASA Status: 3 Anesthesia Plan: general Last Vitals: Vitals Value Taken Time BP 144/78 09/26/24 1154 Temp 97.3 09/26/24 1154 Pulse 76 09/26/24 1154 Resp 15 09/26/24 1154 SpO2 100 09/26/24 1154 No data recorded Anesthesia Post Evaluation Patient location during evaluation: PACU Patient participation: complete - patient participated Level of consciousness: sleepy but conscious Pain score: 0 Pain management: adequate Airway patency: patent Anesthetic complications: no Cardiovascular status: acceptable Respiratory status: acceptable and face mask Hydration status: acceptable Nausea: No Vomiting: No There were no known notable events for this encounter. * GODWIN Mary - 09/26/2024 10:35 AM ESTAssociated Order(s): Intubation General Information and Staff Patient location during procedure: OR Other anesthesia staff: GODWIN Mary Performed: other anesthesia staff Performed by: GODWIN Mary Authorized by: Terrance Nash MD Intubation Airway not difficult Urgency: elective Final Airway Details Successful airway: ETT Cuffed: yes Successful intubation technique: video laryngoscopy (Elective) Facilitating devices/methods: intubating stylet Endotracheal tube insertion site: oral Blade: Oli Blade size: #3 ETT size (mm): 7.0 Cormack-Lehane Classification: grade IIa - partial view of glottis Placement verified by: chest auscultation and capnometry Measured from: lips ETT to lips (cm): 21 Number of attempts at approach: 1 Number of other approaches attempted: 0Final airway type: endotracheal airway Indications and Patient Condition Indications for airway management: anesthesia Spontaneous Ventilation: absent Sedation level: Yes Preoxygenated: yes Soft Tissue Damage: No Dentition Unchanged: Yes Patient position: sniffing Mask difficulty assessment: 2 - vent by mask + OA or adjuvant +/- NMBA Start Time: 09/26/2024 10:09 AMStop Time: 09/26/2024 10:09 AM * Terrance Nash MD - 09/26/2024 8:03 AM EST 69 y.o. female scheduled for Spinal stenosis, cervical region [C4-5 posterior decompression (Spine Cervical)] Ht Readings from Last 1 Encounters: 08/29/24 1.6 m (63 ) Wt Readings from Last 1 Encounters: 08/29/24 67.1 kg (148 lb) Body mass index is 26.22 kg/m??. Past Medical History: Diagnosis Date Autoimmune hepatitis (CMS/HCC) DX:Autoimmune hepatitis (HCC); COMMENT: Dx made at [facility] in 06/2012, incl liver bx and MRI.Begun on steroidsm, and f/u at [facility] in Aug. w/ Cataract Chronic pain syndrome DX:Chronic pain syndrome Dysphagia [...] PROCEDURE: HISTORICAL APPENDECTOMY; COMMENT: 1990 BARIATRIC SURGERY CARPAL TUNNEL RELEASE Bilateral CATARACT EXTRACTION CHOLECYSTECTOMY EYE SURGERY JOINT REPLACEMENT KNEE ARTHROPLASTY Right KNEE SURGERY Right PROCEDURE: HISTORICAL KNEE SURGERY; COMMENT: knee replacement - 10/14/23 OTHER SURGICAL HISTORY N/A PROCEDURE: HISTORY OTHER; COMMENT: Gallbladder - 1984 OTHER SURGICAL HISTORY N/A PROCEDURE: HISTORY OTHER; COMMENT: Gastro bypass - 2008 STEREOTACTIC CORE BIOPSY Left goiter biopsy TONSILLECTOMY N/A PROCEDURE: HISTORICAL TONSILLECTOMY Anesthesia complications Denies Allergies Allergen Reactions Adalimumab Blood Issues and GI intolerance Other reaction(s): liver failure (per patient's report) Other reaction(s): liver failure (per patient's report) Liver failure Liver failure Infliximab Bleeding and GI intolerance Other reaction(s): Liver failure Prior to Admission medications Medication Sig Start Date End Date Taking? Authorizing Provider acetaminophen (TYLENOL 8 HOUR) 650 mg 8 hr tablet Take 2 Tablets by mouth. Yes Historical Provider, albuterol HFA (PROAIR HFA ; PROVENTIL HFA ; VENTOLIN HFA) 90 mcg/actuation inhaler Inhale 2 puffs by mouth every 6 (six) hours if needed for wheezing. Yes Historical Provider, alendronate (FOSAMAX) 35 mg tablet 1 Tablet. 08/24/23 Yes Historical Provider, cyanocobalamin (VITAMIN B-12) 100 mcg tablet Take 1 tablet (100 mcg total) by mouth 2 (two) times aday. Yes Historical Provider, famotidine (PEPCID) 20 mg tablet Take 1 Tablet by mouth. 09/20/23 Yes Historical Provider, HYDROmorphone (DILAUDID) 2 mg tablet TAKE 1 TABLET EVERY 4 TO 6 HOURS NEEDED. 11/07/13 Yes Historical Provider, levothyroxine (SYNTHROID, LEVOTHROID) 75 mcg tablet TAKE 1 TAB(S) ORALLY ONCE A DAY 04/05/13 Yes Historical Provider, melatonin 3 mg tablet Take 1 Tablet by mouth. Yes Historical Provider, upadacitinib (Rinvoq) 30 mg tablet extended release 24 hr Take by mouth. Yes Historical Provider, cholecalciferol (VITAMIN D-3) 25 mcg (1,000 unit) capsule Take 1 Capsule by mouth. Historical Provider, cyproheptadine (PERIACTIN) 4 mg tablet Take 1 tablet (4 mg total) by mouth 2 (two) times a day if needed. Historical Provider, furosemide (LASIX) 20 mg tablet or 30 days 02/29/24 Historical Provider, naloxone (NARCAN) 4 mg/0.1 mL nasal spray Administer 1 each (4 mg total) into affected nostril(s). 07/15/22 Historical Provider, ondansetron ODT (ZOFRAN-ODT) 8 mg disintegrating tablet TAKE 1 MG Daily 04/05/13 Historical Provider,MD Nayak have personally reviewed all the patient's medications with them prior to anesthesia. Current In-hospital Medications ceFAZolin, 2 g, intravenous, Once dexAMETHasone, 8 mg, intravenous, Once Social History Tobacco Use Smoking status: Former Smokeless tobacco: Never Is the patient a current smoker (e.g. cigarette, cigar, pip, e-cigarette, or mariajuana)? Yes [] No[] Patient previously instructed to abstain from smoking on the day of procedure? Yes [] No[] Patient smoked on the day of procedure? Yes [] No[] ASPIRE smoking VBR: [] Not interested in quitting [] Interested in quitting- referred to treatment [] Interested in quitting - treatment provided Visit Vitals BP 134/76 Pulse 72 Temp 36.5 ??C (97.7 ??F) Resp 16 Ht 1.6 m (63 ) Wt 67.1 kg (148 lb) SpO2 100% BMI 26.22 kg/m?? Smoking Status Former BSA 1.7 m?? LABS: No results found for: WBC , HGB , HCT , MCV , PLT No results found for: GLUCOSE , CALCIUM , NA , K , CO2 , CL , BUN , CREATININE No results found for: INR , PROTIME No results found for: PTT Relevant Problems Pulmonary (+) Asthma Endo (+) Hypothyroidism GI (+) Autoimmune hepatitis (CMS/HCC) (+) Gastroesophageal reflux disease Other (+) Arthritis Clinical information reviewed: Tobacco Allergies Meds Med Hx Surg Hx Fam Hx Soc Hx Anesthesia Plan ASA 3 Anesthesia Plan: general General Anesthesia Considerations: ETT Anesthesia Risks Discussed dental injury, nausea, pain, sore throat, serious complications, allergic reaction and corneal abrasion Induction method: intravenous Anesthetic plan and risks discussed with patient. Anesthesia Plan discussed with REFERENCE LIBRARIAN. Anesthesia Evaluation History of anesthetic complications Airway Mallampati: II Thyromental distance: > 3 finger breadths Neck ROM: limitednot intubatedno noted risk Dental - normal exam (+) lower dentures Comment: Lower partial out Pulmonary breath sounds clear to auscultation (+) asthma, sleep apnea Cardiovascular - negative ROS (+) past UT (Old UT treated medically) Rhythm: regular Rate: normal ROS comment: ECHO 10/2017: 1. Normal left ventricular size with normal LV systolic function and estimated EF 60-65%. 2. There is no significant diastolic dysfunction with normal left atrial filling pressure pattern based on mean E/e'. 3. No significant mitral insufficiency. 4. No significant aortic stenosis. 5. Left atrium size is upper normal. 6. Right ventricle size is normal and function is normal. 7. No significant Pumonary hypertension. Compared to prior echo dated 01/19/2013, there is no significant change Neuro/Psych Comments: DJD/ Cervical spondylosis, radiculopathy right>left Chronic pain: On Dilaudid 2mg, 4 times/day Mental Status: alert and oriented GI/Hepatic/Renal (+) GERD, liver disease (Autoimmune hepatitis, followed by [facility], stable) Endo/Other (+) hypothyroidism Abdominal Abdomen: soft. Bowel sounds: normal. PONV RISK SCORE: 2 Vitals: 08/29/24 0900 09/26/24 0756 BP: 134/76 Pulse: 72 Resp: 16 Temp: 36.5 ??C (97.7 ??F) SpO2: 100% Weight: 67.1 kg (148 lb) Height: 1.6 m (63 ) SpO2 Readings from Last 1 Encounters: 09/26/24 100% No results found for: WBC , RBC , HGB , HCT , PLT , MCV Allergies Allergen Reactions Adalimumab Blood Issues and GI intolerance Other reaction(s): liver failure (per patient's report) Other reaction(s): liver failure (per patient's report) Liver failure Liver failure Infliximab Bleeding and GI intolerance Other reaction(s): Liver failure STOP BANG: No data recorded NPO Status: Time of Last Liquid: 1800 Time of Last Solid: 1800 documented in this encounter Plan of Treatment Not on file documented as of this encounter Procedures Procedure Name Priority Date/Time Associated Diagnosis Comments TH AN ENDOTRACHEAL(NO CHARGE) Routine 09/26/2024 10:35 AM EST documented in this encounter Results * TH AN ENDOTRACHEAL(NO CHARGE) (09/26/2024 10:35 AM EST) Greg Vigil SRNA - 09/26/2024 10:35 AM EST GODWIN Mary ? 09/26/2024 10:36 AM General Information and Staff Patient location during procedure: OR Other anesthesia staff: GODWIN Mary Performed: other anesthesia staff Performed by: GODWIN Mary Authorized by: Terrance Nash MD ?? Intubation Airway not difficult Urgency: elective Final Airway Details Successful airway: ETT Cuffed: yes Successful intubation technique: video laryngoscopy (Elective) Facilitating devices/methods: intubating stylet Endotracheal tube insertion site: oral Blade: Oli Blade size: #3 ETT size (mm): 7.0 Cormack-Lehane Classification: grade IIa - partial view of glottis Placement verified by: chest auscultation and capnometry Measured from: lips ETT to lips (cm): 21 Number of attempts at approach: 1 Number of other approaches attempted: 0Final airway type: endotracheal airway Indications and Patient Condition Indications for airway management: anesthesia Spontaneous Ventilation: absent Sedation level: Yes Preoxygenated: yes Soft Tissue Damage: No Dentition Unchanged: Yes Patient position: sniffing Mask difficulty assessment: 2 - vent by mask + OA or adjuvant +/- NMBA Start Time: 09/26/2024 10:09 AMStop Time: 09/26/2024 10:09 AM Terrance Nash MD ANESTHESIA ORDERABLES Final R esult documented in this encounter Visit Diagnoses Not on filedocumented in this encounter Administered Medications Inactive Administered Medications - up to 3 most recent administrations Medication Order MAR Action Action Date Dose Rate Site ceFAZolin (ANCEF) 2 g in sterile water 20 mL IV syringe 2 g, intravenous, Administer over 3 Minutes, Once, On Thu09/26/24 at 0815, For 1 dose, Preprocedure, -IV Push over 3 minutes -Administer within 60 minutes of incision, Indication: Prophylaxis-Surgical New Bag 09/26/2024 10:34 AM EST 2 g fentaNYL (PF) (SUBLIMAZE) injection intravenous, As needed, Starting on Thu09/26/24 at 1002, Anesthesia Intraprocedure Given 09/26/2024 10:30 AM EST 50 mcg Given 09/26/2024 10:02 AM EST 50 mcg glycopyrrolate (ROBINUL) injection intravenous, As needed, Starting on Thu09/26/24 at 1038, Anesthesia Intraprocedure Given 09/26/2024 10:[address] 0.1 mg Given 09/26/2024 10:38 AM EST 0.1 mg HYDROmorphone (DILAUDID) injection intravenous, As needed, Starting on Thu09/26/24 at 1105, Anesthesia Intraprocedure Given 09/26/2024 11:[address] 0.5 mg Given 09/26/2024 11:05 AM EST 0.5 mg ketamine (KETALAR) injection intravenous, As needed, Starting on Thu09/26/24 at 1054, Anesthesia Intraprocedure Given 09/26/2024 10:54 AM EST 25 mg lactated Ringer's infusion intravenous, Continuous PRN, Starting on Thu09/26/24 at 1030, Anesthesia Intraprocedure New Bag 09/26/2024 10:30 AM EST 75 m L/hr lidocaine (PF) (XYLOCAINE-MPF) 2 % injection injection, As needed, Starting on Thu09/26/24 at 1002, Anesthesia Intraprocedure Given 09/26/2024 10:02 AM EST 100 mg ondansetron (PF) (ZOFRAN) injection intravenous, As needed, Starting on Thu09/26/24 at 1124, Anesthesia Intraprocedure Given 09/26/2024 11:24 AM EST 4 mg propofoL (DIPRIVAN) injection intravenous, As needed, Starting on Thu09/26/24 at 1002, Anesthesia Intraprocedure Given 09/26/2024 10:23 AM EST 20 mg Given 09/26/2024 10:02 AM EST 180 mg rocuronium (ZEMURON) injection intravenous, As needed, Starting on Thu09/26/24 at 1003, Anesthesia Intraprocedure Given 09/26/2024 10:23 AM EST 50 mg Given 09/26/2024 10:03 AM EST 50 mg sugammadex (BRIDION) 100 mg/mL injection intravenous, As needed, Starting on Thu09/26/24 at 1138, Anesthesia Intraprocedure Given 09/26/2024 11:[address] 200 mg documented in this encounter Orders Medications Ordered That Rafael ht Not Have Been Administered Count Last Ordered Date First Ordered Date lactated Ringer's infusion 1 09/26/2024 documented in this encounter Care Teams Validation Software Facilitator Relationship Specialty Start Date End Date Jed Brown MD [address] [place] [id number] PCP - General Internal Medicine 07/04/24 documented as of this encounter
--- OUTSIDE RECORDS SUMMARY | 2024-10-14 16:16 | XMS_ITS | Patient Health Record ---
Author Organization [facility] Address [address] [place] [address] Support Name Relationship Address Phone ALEKSANDR MAJOR Guarantor Unknown Reason For Referral No Information Medications Medication SIG (Take, Route, Fr equency, Duration) Notes Start Date End Date Status Levoxyl 75MCG 1 ORAL DAILY for -3 Rafael-MJ 09/30/2011 Active Tylenol 325MG 1-2 ORAL every six hours for -3 Rafael-MJ 09/04 Active Lasix 40MG 1 ORAL daily for -3 Rafael-MJ 09/30/2011 Active Problems Problem Type SNOMED Code ICD Code Onset Dates Problem Status W/U Status Risk Notes Problem Hypothyroidism (73425193) Unspecified hypothyroidism (244.9) Active confirmed Major Problem Asthma (disorder) (085924566) Asthma, unspecified, unspecified status (493.90) Active confirmed Major Problem Menopausal symptom (22585042) Symptomatic menopausal or female climacteric states (627.2) Active confirmed Major Problem Gynecological examination normal (791884504242954) Routine gynecological examination (V72.31) Active confirmed Major Problem Screening for malignant neoplasm of colon (328950130) Special screening for malignant neoplasms, colon (V76.51) Active confirmed Major Plan Of Treatment No Information Insurance Providers Payer Name Payer Address Payer Phone Subscriber Number Group Number Insured Name Patient Relationship to Insured Coverage Start Date Coverage End Date [employer] [place] [address] [place] [address] [phone] [id number] ALEKSANDR MAJOR Self - patient is the insured
--- OUTSIDE RECORDS SUMMARY | 2024-10-14 16:16 | XMS_ITS | Encounter Summary ---
Author Organization [facility] Address [address] [place] [address] Care Team Providers Care Tile Grinder Name Role Phone Jed Brown MD Primary Care Provider + [phone] Reason for Visit * Auth/Cert (Routine) Specialty Diagnoses / Procedures Referred By Contac t Referred To Contact Diagnoses Spinal stenosis, cervical region CERVICAL SPINAL STENOSIS Procedures [place] DE [place] SP CORD WO FACETECTOMY/FORAMINOTOMY/DISC ECTOMY 1 OR 2 VERT SEGM CERV C4-5 posterior decompression Lizett Bradford MD [address] [place] [address] Phone: tel: fax: [facility] [place] [address] [place] [address] Phone: tel: Referral ID Status Reason Start Date Expiration Date Visits Re quested Visits Authorized [id number] 1 1 Encounter Details Date Type Department Care Team (Latest Contact Info) Description 09/26/2024 7:26 AM EST - 09/26/2024 2:28 PM EST Hospital Encounter [facility] Main OR [address] [place] [address] Lizett Bradford MD [address] [place] [address] Spinal stenosis, cervical region Discharge Disposition: Home or Self Care Social History Tobacco Use Types Packs/Day Years [...] Sign Reading Time Taken Comments Blood Pressure 146/88 09/26/2024 1:27 PM EST Pulse 82 09/26/2024 1:27 PM EST Temperature 36.9 ??C (98.4 ??F) 09/26/2024 1:27 PM ES T Respiratory Rate 15 09/26/2024 1:00 PM EST Oxygen Saturation 100% 09/26/2024 1:27 PM EST Inhaled Oxygen Concentration - - Weight 67.1 kg (148 lb) 08/29/2024 9:00 AM EST Height 160 cm (5' 3 ) 08/29/2024 9:00 AM EST Body Mass Index 26.22 08/29/2024 9:00 AM EST documented in this encounter Discharge Instructions * Discharge Instructions* JADYN Gonzales - 09/26/2024 12:13 PM EST Ivelisse I am unable to change the printed handout directions, but please only take your Dilaudid (hydromorphone) prescribed by your pain management doctor, do not take both prescriptions together. Please call the office to schedule your postop appointment for 10-14 days, #[phone]. Call withany concerns or questions, like wound [...] through Care Everywhere. * Cervical Spinal Stenosis (Senegalese) * General Anesthesia (Senegalese) documented in this encounter Medications at Time [...] day for 3 days. 6 each 09/26/2024 5 documented as of this encounter Ordered Prescriptions [...] Heart has regular rate. BP: 146/88 (09/26 132) Heart Rate: 82 (09/26 132) Temp: 36.9 ??C (98.4 ??F) (09/26 1326) SpO2: 100 % (09/26 1326) O2 Flow Rate (L/min): 4 L/min (09/26 1155) O2 Delivery Method: Simple mask (09/26 1155) A/P: Pt is s/p C4-5 posterior [...] reviewed and all questions answered. Consent signed. Liztet Bradford MD Source Note - JADYN Huynh [...] DX:Autoimmune hepatitis (HCC); COMMENT: Dx made at [facility] in 06/2012, incl liver bx and MRI.Begun on steroidsm, and f/u at [facility] in Aug. 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 There was [...] the cervical spine August 04, 2024 at [facility]. This did reveal degenerative disc disease [...] Brown MD [facility] [place] * JADYN Huynh - 09/23/2024 4:06 PM EST NEW PATIENT CONSULTATION Date of Visit: 09/23/2024 Primary Care Physician: Jed Brown MD RE: Ivelisse Parklizet : 1955 Chief complaint: Hand weakness History [...] DX:Autoimmune hepatitis (HCC); COMMENT: Dx made at [facility] in 06/2012, incl liver bx and MRI.Begun on steroidsm, and f/u at [facility] in Aug. 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 There was [...] the cervical spine August 04, 2024 at [facility]. This did reveal degenerative disc disease [...] EST CC: No ref. provider found Jed Bronw MD [facility] [place] documented in this encounter Procedure Notes * Mena Centeno RN - 09/26/2024 1:37 PM EST Pt. Ambulated to BR and voided 600 ml clear yellow urine, Pvr 0 , Neuros intact torres well * Lizett Bradford MD - 09/26/2024 10:56 AM EST C4-5 posterior decompression OPERATIVE NOTE Date: 09/26/2024 Location: [facility] OR Name: Ivelisse Wasserman, : 1955, Diagnosis Pre-op Diagnosis * Spinal stenosis, cervical region [M48.02] Post-op Diagnosis * Spinal stenosis, cervical region [M48.02] Procedures C4-5 posterior decompression 17977 - TN DE [place] SP CORD WO FACETECTOMY/FORAMINOTOMY/DISCECTOMY 1 OR 2 VERT SEGM CERV Indications: Ivelisse Wasserman is an 69 y.o. female who is having surgery for CERVICAL SPINAL STENOSIS. Surgeon(s) & Bar Finish Operator(s) * Lizett Bradford MD - Primary Physician Bar Finish Operator: JADYN Gonzales Anesthesia: general Findings: 2 g of Ancef were given, urine output not measured Fluids: 1 L Estimated Blood Loss: 15 mL Drains: None Specimen: C4-5 bone and ligament Specimens ID Source Type Tests Collected By Collected At [facility]? Priority Lab ID 1 Spine, Cervical Bone [...] Castaneda RN - 09/26/2024 8:17 AM EST Formerly [facility] [phone] documented in this encounter Plan of Treatment [...] 10:13 AM EST Spinal stenosis, cervical region TN DE [place] SP CORD WO FACETECTOMY/FORAMI [...] projecting posterior to the C4-5 interspace. Code 84190 The dose-area product for this procedure was 15.07 uGy*m2. PQRI CPT II G9500 -------- FINAL REPORT -------- Dictated By: Rodrigo Melendez Dictated Date: 09/26/2024 11:32 ET Assigned Physician: Rodrigo Melendez Reviewed and Electronically Signed By: Rodrigo Melendez Signed Date: 09/26/2024 11:35 ET Workstation ID: [id number] Transcribed By: Self Edit Transcribed Date: 09/26/2024 [...] probe projectingposterior to the C4-5 interspace. Code 54336 The dose-area product for this procedure was 15.07 uGy*m2. PQRI CPT II G9500 -------- FINAL REPORT -------- Dictated By: Rodrigo Melendez Dictated Date: 09/26/2024 11:32 ET Assigned Physician: Rodrigo Melendez Reviewed and Electronically Signed By: Rodrigo Melendez Signed Date: 09/26/2024 11:35 ET Workstation ID: [id number] Transcribed By: Self Edit Transcribed Date: 09/26/2024 11:32 ET us Lizett Bradford MD IMG XR PROCEDURES Final Result * Tissue exam (09/26/2024 10:13 AM EST) Final Diagnosis Spine, posterior, bone and ligament [id number] n: -BONE, CARTILAGE AND FIBROELASTIC TISSUE WITH DEGENERATIVE CHANGES 09/28/2024 1:36 PM EST [facility] Gross Description A. Spine, Cervical, posterior bone and ligament C4-5: Labeled posterior cervical . Received in blood-tinged formalin, is a 3.0 x 2.0 x 1.0 cm aggregate of rubbery to hard, hong-pink to red, focally cauterized to minimally blue-stained portions of shredded tissue and bone. The specimen is sectioned and ict sales representative sections are submitted in one cassette, multiple pieces, following decalcification. TS 09/28/2024 1:36 PM [facility] Disclaimer Unless otherwise specified, all tissue is 10% NB formalin fixed and paraffin embedded. 09/28/2024 1:36 PM EST [facility] Bone Structure of cervical vertebral column / Unknown 09/26/2024 10:13 AM EST 09/26/2024 12:48 PM EST us Lizett Bradford MD LAB PATHOLOGY ORDERABLES Final Result [facility] [address] [place] [address], * ECG 12 lead - Procedural (No Charge) (09/26/2024 9:18 AM EST) Ventricular Rate ECG 76 BPM GEMUSE Atrial Rate 76 BPM GEMUSE P-R Interval 174 ms GEMUSE QRS Duration 60 ms GEMUSE Q-T Interval 386 ms GEMUSE QTc 434 ms GEMUSE P Wave [place] 46 degrees GEMUSE R [place] 5 degrees GEMUSE T [place] 39 degrees GEMUSE ECG Interpretation Sinus rhythm [...] Diagnoses Diagnosis Spinal stenosis, cervical region- Primary documented in this encounter Admitting Diagnoses Diagnosis [...] 8:25 AM EST 75 mL/hr 75 mL/hr ondansetron (PF) (ZOFRAN) injection 4 mg 4 [...] at 0817, Preprocedure documented in this encounter Discontinued Medications Medication [...] ritu rile water 20 mL IV syringe 1 09/26/2024 diphenhydrAMINE (BENADRYL) i njection 12.5 mg 1 09/26/2024 fentaNYL (PF) (SUBLIMAZE) injection 50 mcg 1 09/26/2024 haloperidol lactate (HALDOL) injection 1 mg 1 09/26/2024 HYDROmorphone (PF) injection 0.5 mg 1 09/26 lactated Ringer's infusion 1 09/26/2024 lidocaine-EPINEPHrine (XYLOC ELS W/EPI) 1 %-1:100,000 injection 1 09/26/2024 ondansetron (PF) (ZOFRAN) injection 4 mg 1 09/26/2024 oxyCODONE (ROXICODONE) immed iate release tablet 5 mg 1 09/26/2024 sodium chloride 0.9 % flush 10 mL 2 025 thrombin topical solution 1 09/26/2024 Discharge Count Last Ordered Date First Orde red Date DISCHARGE PATIENT 1 09/26/2024 documented in this encounter Care Teams Tile Grinder Relationship Specialty Start Date End Date Jed Brown MD [address] [place] [address] [phone] (work) PCP - General Internal Medicine 07/04/24 documented as of this encounter
--- OUTSIDE RECORDS SUMMARY | 2024-10-14 16:16 | XMS_ITS | Clinical Summary ---
Author Organization [facility] Address [address] [place] [address] Phone Care Team Providers Care Threshing Department Supervisor Name Role Phone Jed Montiel MD Primary Care Provider [phone] Allergies Active Allergy Reactions Criticality Noted Date Comments Adalimumab Blood Issues,GI intolerance 02/19/2022 Other reaction(s): liver failure (per patient's report) Other reaction(s): liver failure (per patient's report) Liver failure Liver failure Infliximab Bleeding,GI intolerance 09/23/2023 Other reaction(s): Liver failure Medications upadacitinib (Rinvoq) 30 mg tablet extended release 24 hr Take by mouth. A ctive HYDROmorphone (DILAUDID) 2 mg tablet TAKE 1 TABLET EVERY 4 TO 6 HOURS NEEDED. 11/08/19 14 Active famotidine (PEPCID) 20 mg tablet Take 1 Tablet by mouth. 09/20/19 24 Active cyanocobalamin (VITAMIN B-12) 100 mcg tablet Take 1 tablet (100 mcg total) by mouth 2 (two) times a day. Active levothyroxine (SYNTHROID, LEVOTHROID) 75 mcg tablet TAKE 1 TAB(S) ORALLY ONCE A DAY 04/05/20 13 Active alendronate (FOSAMAX) 35 mg tablet 1 Tablet. 08/24/19 24 Active ondansetron ODT (ZOFRAN-ODT) 8 mg disintegrating tablet TAKE 1 MG Daily 04/05/20 13 Active melatonin 3 mg tablet Take 1 Tablet by mouth. Active acetaminophen (TYLENOL 8 HOUR) 650 mg 8 hr tablet Take 2 Tablets by mouth. Active cholecalciferol (VITAMIN D-3) 25 mcg (1,000 unit) capsule Take 1 Capsule by mouth. Active furosemide (LASIX) 20 mg tablet or 30 days 02/29/20 24 Active cyproheptadine (PERIACTIN) 4 mg tablet Take 1 tablet (4 mg total) by mouth 2 (two) times a day if needed. Active naloxone (NARCAN) 4 mg/0.1 mL nasal spray Administer 1 each (4 mg total) into affected nostril(s). 07/15/20 22 Active albuterol HFA (PROAIR HFA ; PROVENTIL HFA ; VENTOLIN HFA) 90 mcg/actuation inhaler Inhale 2 puffs by mouth every 6 (six) hours if needed for wheezing. Active HYDROmorphone (DILAUDID) 2 mg tablet 1-2 tabs PO Q6 hours as needed for severe pain. 30 tablet 09/26/19 25 Active sulfamethoxazole-t rimethoprim (BACTRIM DS,SEPTRA DS) 800-160 mg per tablet Take 1 tablet by mouth 2 (two) times a day for 3 days. 6 each 09/26/19 25 025 Active Problems Problem Noted Date Diagnosed Date Neck pain 10/06/2024 Spinal stenosis, cervical region 08/25/2024 DDD (degenerative disc disease), lumbar 04/30/20 24 Overview (06/20/2024): Last Assessment & Plan: Patient states she has been having low back pain and difficulty walking for at least 10 years. About 10-15 years ago she used to walk 2 miles a day but then became significantly limited. She states she can do short periods shopping but has to lean on a shopping cart. Pain is worse with walking >standing, when she sitting her legs feel jumpy. She gets numbness tingling and pain in her feet, notices twitching in the feet. She states she also has some podiatry issues, was fitted with an orthotic, has pain in her feet from this. She notes pain in the left >right lateral legs. She tried using a lidocaine patch but does not help. No recent oral steroids, last time she recalls prednisone was 10 to 12 years ago for autoimmune hepatitis. She has history of psoriatic arthritis, osteoarthritis, autoimmune hepatitis after Remicade treatments for PRP (pityriasis Alondra Polaris). She had physical therapy for her back 4 to 5 years ago, recently was in PT for her knee s/p right knee replacement. She states her right knee does feel much better after the knee replacement, she still has issues with the left knee. There was some discussion about left knee replacement in the future. Orthopedic: Dr. Montiel in [facility]. No cortisone injections in the low back, only knee. Patient had MRI lumbar spine 04/11/2024 with multilevel degenerative changes including multilevel DDD, L3-4 disc herniation causing moderate stenosis. I reviewed the MRI images with the patient and her on the computer. Dr. Bradford reviewed the MRI today as well. Ms. Wasserman has chronic low back pain, difficulty walking distances, Dr. Bradford does not feel the stenosis at L3-4 is severe (more moderate) but the stenosis is worse left >right, is not recommending surgery at this time, would like patient to try conservative treatments. I explained she has degenerative disc disease at most levels in her low back, which can contribute to back pain. We talked about conservative treatment options, at this time patient would like to go back to integrative PT where she went for her knee PT, prescription provided. We can have her follow-up after therapy. All questions answered. Cervical spondylosis 04/30/2024 Overview (06/20/2024): Last Assessment & Plan: Patient also wanted to address her neck pain at today's visit. She notes that she drops things frequently, has some dexterity issues. Legs feel jumpy when she is resting. She rates her general pain 8/10. No recent conservative treatments for her neck pain. Pain is bilateral upper trapezius, radiating to the shoulders and outer arms. Patient has not had imaging done for her neck, I put an order for C-spine x-rays and MRI. Given her significant degenerative changes in her lumbar spine, she likely has multilevel changes in the neck as well and I want to R/O stenosis, also has history of psoriatic arthritis, osteoarthritis. She has a mild fine tremor in the hands, I explained this would be unrelated to her neck issues. If it worsens we can refer her to neurology. Assessment & Plan (10/06/2024 2:45 PM EST): Patient is about 10 days status post C4-5 decompression. Since the surgery she feels like her hands worked better and she has less arm pain. On examination, she is neurologically intact. Her incision is healing nicely. I removed her kiara today. She is pleased with her early postoperative results and I would agree with her. She will follow-up with Dr. Bradford on an as-needed basis. Assessment & Plan (07/29/2024 10:08 PM EST): Patient has persistent daily neck pain 6-7/10, pain down both proximal arms to the elbows. She will drop things, notices that her hands are weak, especially the right one, she no longer can do things like knitting, mihai. Her legs are jumpy at rest L >R. Lidocaine patches are not helping her neck pain. Patient had C-spine x-rays 04/29/2024 that showed loss of disc height and degenerative changes with osteophytes at C5-6, C6-7, also appears to be at C7-T1. I ordered C/S MRI to better evaluate the cervical degenerative changes and r/o stenosis contributing to her weakness and neck pain. I will call her with results once completed. Asthma 04/28/2024 Arthritis 04/28/2024 Dyslipidemia 04/28/2024 Low back pain 04/28/2024 Assessment & Plan (07/29/2024 2:52 PM EST): Patient is following up for her low back pain, L3-4 disc herniation causing central stenosis, lumbar DDD. At her last visit she was given a prescription for physical therapy, does not recall having been given that prescription, since her last visit has not done PT. She looked into acupuncture but her insurance would not cover it. She rates her back pain with sitting and standing 6-7/10, walking 5-6/10, states she has to lean forward and walk very slowly, which irritates her family that she moves so slow . She continues to have pain in the lateral legs, sometimes her right foot has pain, the toes will go numb. She uses a lidocaine patch on her low back daily, does help somewhat. MRI lumbar spine 04/11/2024 with multilevel degenerative changes including multilevel DDD, L3-4 disc herniation causing moderate stenosis. Ms. Wasserman has persistent low back pain, is walking hunched forward, poor balance, is considering to start using a cane which she has at home from her prior knee surgery. I gave her a new prescription to try physical therapy and she can follow-up afterward. I asked her to call with any concerns or questions. 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 [place] [address] [place] [phone] Terrance Nash MD Brandt Greg [facility] 09/26/2024 9:30 AM EST - 09/26/2024 11:[address] [facility] OR [address] [place] [phone] Lizett Bradford MD C4-5 posterior decompression [69827 (CPT??)] 09/26/2024 7:26 AM EST - 09/26/2024 2:28 PM EST Hospital Encounter [facility] OR [address] [place] [phone] Lizett Bradford MD Spinal stenosis, cervical region Discharge Disposition: Home or Self Care 08/17/2024 1:45 PM EST Office Visit Gastroenterology - [address] [facility] [address] [place] [phone] Sarina Stokes MD Diarrhea, unspecified type (Primary Dx); Pancreatic cyst 08/16/[address] [facility] [address] [facility] [address] [place] [phone] Jenniffer Turk PA 08/04/2024 10:41 AM EST - 08/04/2024 11:59 PM EST Hospital Encounter [facility] MRI [address] [place] [phone] Cervical spondylosis Discharge Disposition: Home or Self Care 07/29/2024 2:30 PM EST Office Visit [facility] [address] [facility] [address] [place] [phone] Jenniffer Turk PA Cervical spondylosis (Primary Dx); Lumbar stenosis with neurogenic claudication; Chronic bilateral low back pain with right-sided sciatica 07/25/2024 2:05 PM EST - 07/25/2024 11:59 PM EST Hospital Encounter [facility] [address] [place] [phone] Encounter for other screening for malignant neoplasm of breast; Encounter for screening mammogram for malignant neoplasm of breast Discharge Disposition: Home or Self Care from Last 3 Months Immunizations Name Administration Dates Next Due Influenza trivalent, 0.5mL (Fluad) 65yo and olde r 06/18/2023,05/09/2020 Influenza trivalent, 0.5mL, preservative free (Fluarix; FluLaval; Fluzone) ages 6mo and older (Afluria) 3 years and older 07/17/2021,05/15/2017 Moderna SARS-CoV-2 COVID-19, mRNA, LNP-S, preservative free 11/29/2020,11/01/2020 RSV, bivalent, protein subun it RSVpreF, 0.5mL, Preservative Free (Arexvy) 60yo and older 07/02/2023 Tdap Tetanus diptheria acell ular pertussis (Boostrix; Adacel) 7yo and older 07/11/2016 Zoster recombinant (Shingrix) 19yo and older Surgical History Surgery Date Site/Laterality Comments TONSILLECTOMY N/A PROCEDURE: HISTORICAL TONSILLECTOMY OTHER SURGICAL HISTORY N/A PROCEDURE: HISTORY OTHER; COMMENT: Gallbladder - 1984 OTHER SURGICAL HISTORY N/A PROCEDURE: HISTORY OTHER; COMMENT: Gastro bypass - 2008 KNEE SURGERY Right PROCEDURE: HISTORICAL KNEE SURGERY; COMMENT: knee replacement - 10/14/23 APPENDECTOMY N/A PROCEDURE: HISTORICAL APPENDECTOMY; COMMENT: 1990 STEREOTACTIC CORE BIOPSY Left goiter biopsy BARIATRIC SURGERY CHOLECYSTECTOMY EYE SURGERY CATARACT EXTRACTION JOINT REPLACEMENT KNEE ARTHROPLASTY Right CARPAL TUNNEL RELEASE Bilateral Medical History Medical History Date Comments Hyperlipidemia DX:Hyperlipidemi a Mild intermittent asthma, uncomplicated DX:Mild intermittent asthma, uncomplicated Hypothyroidism DX:Hypothyroidis m Multinodular goiter DX:Multinodu lar goiter; COMMENT: s/p bilateral FNA 2011-both benign,right w/low cellularity,stable u/s 2018 Dysphagia DX:Dysphagia; CO MMENT: EGD 03/24/05 Hiatal hernia Autoimmune hepatitis (CMS/HCC) D X:Autoimmune hepatitis (HCC); COMMENT: Dx made at [facility] in 06/2012, incl liver bx and MRI.Begun on steroidsm, and f/u at [facility] in Aug. w/ Osteoporosis DX:Osteoporosis; COMMENT: Bone density test October 2021 Osteoarthritis DX:Osteoarthriti s PRP (pityriasis rubra pilaris) D X:PRP (pityriasis rubra pilaris); COMMENT: Psoriatic arthritis (CMS/HCC) DX :Psoriatic arthritis (HCC); COMMENT: Derm. Dr. Abreu Obstructive sleep apnea DX:Obstr uctive sleep apnea Chronic pain syndrome DX:Chronic pain syndrome Vitamin B12 deficiency DX:Vitami n B12 deficiency GERD (gastroesophageal reflux disease) Cataract Family History Medical History Relation Name Comments Lung cancer Father Other: Other Mother Relation Name Status Comments Brother Father Mother Social History Tobacco Use Types Packs/Day Years [...] Orientation Straight 07/18/2024 10 :24 AM EST Obstetrics History Para Term AB IAB SAB Ectopic Multiple Livin g Live Births 3 Last Filed Vital Signs Vital Sign Reading [...] Mass Index 26.22 10/06/2024 1:57 PM EST Plan of Treatment Health Maintenance Due Date Last Done Comments Hepatitis A Vaccines (1 of 2 - Risk 2-dose series) 1974 Pneumococcal Vaccine: 50+ Years (1 of 2 - PCV) 1974 Hepatitis B Vaccines (1 of 3 - Risk 3-dose series) 2015 Zoster Vaccines (2 of 2) 02/18/2022 12/24/2021 Colorectal Cancer Screening: Colonoscopy 07/06/2022 Depression Screening 07/06/2022 Hepatitis C Screening 07/06/2022 Medicare Annual Wellness Visit 07/06/2022 Social Influencers of Health Screening 07/06/2022 COVID-19 Vaccine ( season) 2024 12/24/2021, 07/17/2021, 11/29/2020, Additional history exists Influenza Vaccine (#1) 2024 , 07/17/2021, 05/09/2020, Additional history exists Falls Risk Assessment 09/26/2025 09/26/2024 DTaP,Tdap,and Td Vaccines (2 - Td or Tdap) 07/11/2026 07/11/2016 Breast Cancer Screening 07/25/2026 07/25/20 24, 07/22/2023, 10/09/2021 Osteoporosis Screening (Bone Density Screening) 10/10/2031 10/09/2021 RSV Immunization Patients 60+ Years Old Completed 07/02/2023 HIB Vaccines Aged Out No longer eligi ble based on patient's age to complete this topic HPV Vaccines Aged Out No longer eligi ble based on patient's age to complete this topic IPV Vaccines Aged Out No longer eligi ble based on patient's age to complete this topic MMR Vaccines Aged Out No longer eligi ble based on patient's age to complete this topic Meningococcal ACWY Vaccine Aged Out N o longer eligible based on patient's age to complete this topic Meningococcal B Vacine Aged Out No lo nger eligible based on patient's age to complete this topic RSV Immunization Patients Under 20 months Aged Out No longer eligible based on patient's age to complete this topic Varicella Vaccines Aged Out No longer eligible based on patient's age to complete this topic Medical Devices Implanted Type Area Pig Machine Supervisor Device Identifier Shelf Expiration Date Model / Serial / Lot Powder Surgifoam Absorb Gel - Sna - [id number] Implanted:Qty : 1 on 09/26/2024 by Lizett Bradford MD at [facility] [employer] N/A: Spine Cervical [employer] 05/10/20261977 / NA / [id number] Cement Bone Surg Simplex Radiopq Stry-How [id number] [id number] Implanted:Qty : 1 on 10/07/2023 by Jack Montiel MD [employer] 10/31/2025 6191-1- 010 / / [id number] Cement Bone Surg Simplex Radiopq Stry-How [id number] 4092 Implanted:Qty : 1 on 10/07/2023 by Jack Montiel MD [employer] 10/31/2025 6191-1- 010 / / [id number] Knee Cmpnt Fem Ps N German Rt Sz4 Stry-How [id number]-G-[id number] [id number] Implanted:Qty : 1 on 10/07/2023 by Jack Montiel MD Right: Knee [employer] [id number] 09/01/2028 5516-F- 402 / / [id number] Knee Bsplt Triathlon Ti Sz 4 Stry-Howm [id number] [id number] Implanted:Qty : 1 on 10/07/2023 by Jack Montiel MD Right: Knee [employer] [id number] 06/20/2028 5536-B- 400 / / [id number] Knee Insrt Tib Ts+ X3 #4 11mm Stry-Howm [id number] [id number] Implanted:Qty : 1 on 10/07/2023 by Jack Montiel MD Right: Knee [employer] [id number] 06/12/2027 5537-G- 411 / / [id number] Knee Ptla Asym Tritanium 32x10 Stry-Howm [id number] [id number] Implanted:Qty : 1 on 10/07/2023 by Jack Montiel MD Right: Knee [employer] [id number] 05/02/2028 5552-L- 320 / / [id number] Procedures Procedure Name Priority Date/Time Associated Diagnosis Comments XR SPINE 1 VIEW Routine 09/26/2024 11:29 AM EST TH AN ENDOTRACHEAL(NO CHARGE) Routine 09/26/2024 10:35 AM EST TISSUE EXAM Routine 09/26/2024 10:13 AM EST Spinal stenosis, cervical region ND DE [place] SP CORD WO FACETECTOMY/FORAMI NOTOMY/DISCECTOMY 1 OR 2 VERT SEGM CERV 09/26/2024 9:52 AM EST Spinal stenosis, cervical region Case Notes C-arm, midas, chest rolls PROCEDURAL ECG Routine 09/26/2024 9:18 AM EST MR CERVICAL SPINE WO CONTRAST Routine 08/04/2024 11:49 AM EST Cervical spondylosis MG MAMMO DIGITAL SCREENING W MAHAD BILAT Routine 07/25/2024 2:33 PM EST Encounter for other screening for malignant neoplasm of breast Encounter for screening mammogram for malignant neoplasm of breast THERESA DEXA AXIAL SKELETON Routine 10/09/2021 12:20 PM EST Encounter for screening for osteoporosis from Last 3 Months or Most Recently Relevant to Health Maintenance Results * XR Spine 1 View (09/26/2024 11:29 AM EST) Anatomical Region Laterality Modality Spine Radio Fluoroscop y 09/26/2024 11:3 2 AM EST Impressions 09/26/2024 11:35 AM EST The first image demonstrates the presence of a metallic probe projecting posterior to the C4-5 interspace. Code 53365 The dose-area product for this procedure was 15.07 uGy*m2. PQRI CPT II G9500 -------- FINAL REPORT -------- Dictated By: Rodrigo Melendez Dictated Date: 09/26/2024 11:32 ET Assigned Physician: Rodrigo Melendez Reviewed and Electronically Signed By: Rodrigo Melendez Signed Date: 09/26/2024 11:35 ET Workstation ID: [id number] Transcribed By: Self Edit Transcribed Date: 09/26/2024 [...] probe projectingposterior to the C4-5 interspace. Code 52010 The dose-area product for this procedure was 15.07 uGy*m2. PQRI CPT II G9500 -------- FINAL REPORT -------- Dictated By: Rodrigo Melendez Dictated Date: 09/26/2024 11:32 ET Assigned Physician: Rodrigo Melendez Reviewed and Electronically Signed By: Rodrigo Melendez Signed Date: 09/26/2024 11:35 ET Workstation ID: [id number] Transcribed By: Self Edit Transcribed Date: 09/26/2024 11:32 ET us Lizett Bradford MD IMG XR PROCEDURES Final Result * TH AN ENDOTRACHEAL(NO CHARGE) (09/26/2024 10:35 [...] 09/26/2024 10:09 AMStop Time: 09/26/2024 10:09 AM us Terrance Nash MD ANESTHESIA ORDERABLES Final R esult * Tissue exam (09/26/2024 10:13 AM EST) Final Diagnosis Spine, posterior, bone and ligament [id number] n: -BONE, CARTILAGE AND FIBROELASTIC TISSUE WITH DEGENERATIVE CHANGES 09/28/2024 1:36 PM EST [facility] Gross Description A. Spine, Cervical, posterior bone and ligament C4-5: Labeled posterior cervical . Received in blood-tinged formalin, is a 3.0 x 2.0 x 1.0 cm aggregate of rubbery to hard, hong-pink to red, focally cauterized to minimally blue-stained portions of shredded tissue and bone. The specimen is sectioned and safety representative sections are submitted in one cassette, multiple pieces, following decalcification. TS 09/28/2024 1:[address] [facility] Disclaimer Unless otherwise specified, all tissue is 10% NB formalin fixed and paraffin embedded. 09/28/2024 1:[address] [facility] Bone Structure of cervical vertebral column / Unknown 09/26/2024 10:13 AM EST 09/26/2024 12:48 PM EST us Lizett Bradford MD LAB PATHOLOGY ORDERABLES Final Result [facility] [address] [place] [address], * ECG 12 lead - Procedural (No Charge) (09/26/2024 9:18 AM EST) Ventricular Rate ECG 76 BPM GEMUSE Atrial Rate 76 BPM GEMUSE P-R Interval 174 ms GEMUSE QRS Duration 60 ms GEMUSE Q-T Interval 386 ms GEMUSE QTc 434 ms GEMUSE P Wave Aspers 46 degrees GEMUSE R Aspers 5 degrees GEMUSE T Aspers 39 degrees GEMUSE ECG Interpretation Sinus rhythm [...] Terrance Nash MD ECG ORDERABLES Final Result [facility] * MR Cervical Spine wo Contrast (08/04/2024 11:49 AM EST) Anatomical Region Laterality Modality C-spine, Spine Magnetic Resonan ce 08/10/2024 1:05 PM EST Impressions 08/10/2024 1:17 PM EST Multilevel disc bulge/osteophyte complex most prominent at the C4-5, C5-6 and C6/7 disc levels with mild AP canal narrowing. Bilateral narrowing of neural foramina is also noted at this disc levels. There is mild bilateral narrowing of neural foramina at C3-4 and on the left at C2-3 disc levels as described above. No major change in disc bulge/osteophyte complex at the C4-5, C5-6 and C6-7 disc levels. -------- FINAL REPORT -------- Dictated By: Ben Patel Dictated Date: 08/10/2024 13:05 ET Assigned Physician: Ben Patel Reviewed and Electronically Signed By: Ben Patel Signed Date: 08/10/2024 13:17 ET Workstation ID: [id number] Transcribed By: Self Edit Transcribed Date: 08/10/2024 13:05 ET Narrative 08/10/2024 1:17 PM EST EXAMINATION: MRI cervical spine without contrast. CLINICAL INDICATION: Cervical radiculopathy. Left comparison: MRI cervical spine 11/17/2013. There are findings: TECHNIQUE: Routine MRI sequences of cervical spine were obtained without contrast. FINDINGS: There is normal cervical lordosis. There is grade 1 anterolisthesis C7 over T1. Otherwise rest of the vertebral heights and alignment is normal.There is loss of C4-5, C5-6 and C6/7 disc heights. Rest the disc heights are normal. At C2-3 disc level there is left neural from narrowing from facet joint hypertrophy. There is no disc bulge, herniation or spinal canal stenosis. The right neural foramina is patent. At C3-4 disc level there is bilateral narrowing of neural foramina from facet joint hypertrophy. No underlying disc bulge, herniation or spinal canal stenosis. At C4-5 disc level there is diffuse bulge/osteophyte complex effacing the ventral thecal sac and resulting in mild AP canal stenosis. There is bilateral mild narrowing of neural foramina from uncovertebral and facet joint hypertrophy slightly greater on the left. Moderate left facet joint hypertrophy is noted. At C5-6 this level is moderate bulge/osteophyte complex resulting in effacement of thecal sac with spinal canal stenosis. There is moderate bilateral narrowing of neural foramina from uncovertebral and facet joint hypertrophy. At C6-7 disc level there is diffuse bulge/osteophyte complex resulting in mild canal stenosis. There is bilateral neural foraminal narrowing slightly greater on the left from uncovertebral hypertrophic changes. At C7-T1 disc level is minimal grade I anterolisthesis C7 or T1 with minimal pseudo disc bulge but no spinal canal stenosis. The neural foramina are patent. The cervical-min junction appears normal. Cord signal and cord caliber in general is maintained normal. The paravertebral soft tissues are normal. Procedure Note Ben Patel MD - 08/10/2024 EXAMINATION: MRI cervical spine without contrast. CLINICAL INDICATION: Cervical radiculopathy. Left comparison: MRI cervicalspine 11/17/2013. There are findings: TECHNIQUE: Routine MRI sequences of cervical spine were obtained withoutcontrast. FINDINGS: There is normal cervical lordosis. There is grade 1anterolisthesis C7 over T1. Otherwise rest of the vertebral heights andalignment is normal.There is loss of C4-5, C5-6 and C6/7 disc heights.Rest the disc heights are normal. At C2-3 disc level there is left neural from narrowing from facet jointhypertrophy. There is no disc bulge, herniation or spinal canal stenosis.The right neural foramina is patent. At C3-4 disc level there is bilateral narrowing of neural foramina fromfacet joint hypertrophy. No underlying disc bulge, herniation or spinalcanal stenosis. At C4-5 disc level there is diffuse bulge/osteophyte complex effacing theventral thecal sac and resulting in mild AP canal stenosis. There isbilateral mild narrowing of neural foramina from uncovertebral and facetjoint hypertrophy slightly greater on the left. Moderate left facet jointhypertrophy is noted. At C5-6 this level is moderate bulge/osteophyte complex resulting ineffacement of thecal sac with spinal canal stenosis. There is moderatebilateral narrowing of neural foramina from uncovertebral and facet jointhypertrophy. At C6-7 disc level there is diffuse bulge/osteophyte complex resulting inmild canal stenosis. There is bilateral neural foraminal narrowingslightly greater on the left from uncovertebral hypertrophic changes. At C7-T1 disc level is minimal grade I anterolisthesis C7 or T1 withminimal pseudo disc bulge but no spinal canal stenosis. The neuralforamina are patent. The cervical-min junction appears normal. Cord signal and cord caliber ingeneral is maintained normal. The paravertebral soft tissues are normal. IMPRESSION: Multilevel disc bulge/osteophyte complex most prominent at the C4-5, C5-6and C6/7 disc levels with mild AP canal narrowing. Bilateral narrowing ofneural foramina is also noted at this disc levels. There is mild bilateral narrowing of neural foramina at C3-4 and on theleft at C2-3 disc levels as described above. No major change in disc bulge/osteophyte complex at the C4-5, C5-6 andC6-7 disc levels. -------- FINAL REPORT -------- Dictated By: Ben Patel Dictated Date: 08/10/2024 13:05 ET Assigned Physician: Ben Patel Reviewed and Electronically Signed By: Ben Patel Signed Date: 08/10/2024 13:17 ET Workstation ID: [id number] Transcribed By: Self Edit Transcribed Date: 08/10/2024 13:05 ET us Jenniffer SALAMANCA IMG MRI PROCEDURES Final R esult * MG Mammo Digital Screening w Mahad bilat (07/25/2024 2:33 PM EST) Anatomical Region Laterality Modality Breast Bilateral Mammography 07/29/2024 7:37 AM EST Impressions 07/29/2024 7:42 AM EST No mammographic evidence of malignancy. A negative mammogram in the presence of a clinically suspicious palpable abnormality does not preclude the possibility of malignancy or alter the indications for biopsy. PQRI CPT II 3342F Code 44638, 09726 PQRI 225 CPT II 7025F TISSUE DENSITY: There are scattered areas of fibroglandular density. (BI-RADS category B) IMPRESSION: Benign. BI-RADS CATEGORY: 2 - BENIGN RECOMMENDATION: Screening bilateral mammogram is recommended in 1 year. Mammo Location: [facility], [address] [place] [id number] -------- FINAL REPORT -------- Dictated By: Rodrigo Melendez Dictated Date: 07/29/2024 07:37 ET Assigned Physician: Rodrigo Melendez Reviewed and Electronically Signed By: Rodrigo Melendez Signed Date: 07/29/2024 07:42 ET Workstation ID: [id number] Transcribed By: Self Edit Transcribed Date: 07/29/2024 07:37 ET Narrative 07/29/2024 7:42 AM EST CLINICAL: The patient is a 69 years Female presenting for routine screening mammography. ??The patient has a history of left breast biopsy in 2008, pathology benign. COMPARISON: 07/22/2023 and 10/09/2021. ?? TECHNIQUE: Full-field digital mammography of the breasts bilaterally consisting of tomosynthesis in MLO and CC projection is performed in the [employer] 2000-D unit. ??Computer aided detection utilizing the iCAD system was utilized. FINDINGS: The breasts are again seen to be composed of a combination of fatty and fibroglandular elements. ??Scattered benign rim calcifications, as well as vascular calcifications, are again seen. ??There is no suspicious cluster of microcalcifications, mass, or area of architectural distortion. There is no skin thickening or nipple retraction. Procedure Note Rodrigo Melendez MD - 07/29/2024 CLINICAL: The patient is a 69 years Female presenting for routinescreening mammography. The patient has a history of left breast biopsy [id number], pathology benign. COMPARISON: 07/22/2023 and 10/09/2021. TECHNIQUE: Full-field digital mammography of the breasts bilaterallyconsisting of tomosynthesis in MLO and CC projection is performed in the[employer]he 2000-D unit. Computer aided detection utilizing the [employer] Systemsystem was utilized. FINDINGS: The breasts are again seen to be composed of a combination offatty and fibroglandular elements. Scattered benign rim calcifications,as well as vascular calcifications, are again seen. There is nosuspicious cluster of microcalcifications, mass, or area of architecturaldistortion. There is no skin thickening or nipple retraction. IMPRESSION: No mammographic evidence of malignancy. A negative mammogram in the presence of a clinically suspicious palpableabnormality does not preclude the possibility of malignancy or alter theindications for biopsy. PQRI CPT II 3342F Code 20247, 61480 PQRI 225 CPT II 7025F TISSUE DENSITY: There are scattered areas of fibroglandular density.(BI-RADS category B) IMPRESSION: Benign. BI-RADS CATEGORY: 2 - BENIGN RECOMMENDATION: Screening bilateral mammogram is recommended in 1 year. Mammo Location: [facility], [address] [place] [address] -------- FINAL REPORT -------- Dictated By: Rodrigo Melendez Dictated Date: 07/29/2024 07:37 ET Assigned Physician: Rodrigo Melendez Reviewed and Electronically Signed By: Rodrigo Melendez Signed Date: 07/29/2024 07:42 ET Workstation ID: [id number] Transcribed By: Self Edit Transcribed Date: 07/29/2024 07:37 ET Jed Montiel MD IMG BI PROCEDURES Final Resu lt * THERESA DEXA AXIAL SKELETON (10/09/2021 12:20 PM EST) Anatomical Region Laterality Modality Mammography 10/09/2021 10:0 9 AM EST Narrative 10/09/2021 12:20 PM EST [facility] Diagnostic Imaging Department [address] [place] [address] Patient: ??ALEKSANDR WASSERMAN ?/Age/Sex: 1955 - 66 - F Unit#: ??[id number] ? Location/Status: ??SPDIMAM/REG CLI ? Mnemonic/Ordering Site: ??MAMDEXAAX/SPMAM Ordering Physician: ??JED MONTIEL MD Theresa Dexa Axial Skeleton - 10/09/211044 History: Low estrogen state due to menopause. Psoriatic arthritis. Chronic glucocorticoid use. On omeprazole. Comparison: 12/29/13 Findings: Bone densitometry is performed utilizing dual energy x-ray absorptiometry (DXA) in the [employer] unit. The lumbar spine and proximal femora are evaluated in the AP projection. The FRAX questionaire was completed. The results indicate low bone mass (osteopenia), with a right femoral neck T- score of -2.4. There have been statistically significant decreases in bone mineral density in the spine and bilateral total femurs since the previous study. ??The detailed DEXA report will be mailed to the referring physician's office. DualFemur FRAX: 10-year Probability of Fracture: Major Osteoporotic 20.3 percent ??Hip 4.9 percent. IMPRESSION: Osteopenia. [id number] Dictating Physician: ??PRISCILLA MCNEAL MD Electronically Signed by: ??PRISCILLA MCNEAL MD Dic Date/Time: ??10/09/21 1219 Sign date/Time: ??10/09/21 1220 Procedure Note Priscilla Mcneal MD - 07/23/2022 [facility] Diagnostic Imaging Department [address] [place] [address] Patient: ALEKSANDR WASSERMAN Dillan /Age/Sex: 1955 - 66 - F Unit#: [id number] Location/Status: SPDIMAM/REG CLI Mnemonic/Ordering Site: MAMDEXAAX/SPMAM Ordering Physician: JED MONTIEL MD Theresa Dexa Axial Skeleton - 10/09/211044 History: Low estrogen state due to menopause. Psoriatic arthritis.Chronic glucocorticoid use. On omeprazole. Comparison: 12/29/13 Findings: Bone densitometry is performed utilizing dual energy x-ray absorptiometry(DXA) in the [employer] unit. The lumbar spine and proximal femora areevaluated in the AP projection. The FRAX questionaire was completed. The results indicate low bone mass (osteopenia), with a right femoral neckT- score of -2.4. There have been statistically significant decreases inbone mineral density in the spine and bilateral total femurs since theprevious study. The detailed DEXA report will be mailed to the referringphysician's office. DualFemur FRAX: 10-year Probability of Fracture: Major Osteoporotic 20.3 percent Hip 4.9 percent. IMPRESSION: Osteopenia. [id number] Dictating Physician: PRISCILLA MCNEAL MD Electronically Signed by: PRISCILLA MCNEAL MD Dic Date/Time: 10/09/21 1219 Sign date/Time: 10/09/21 1220 Jed Montiel MD IMG BI PROCEDURES Final Resu lt from Last 3 Months or Most Recently Relevant to Health Maintenance Insurance * Guarantor: Aleksandr Wasserman Account Type Relation to Patient Date of Phone Billing Address Personal/Family Self 1955 [phone] (Work) [address] [place] [address] MEDICAID - [place] [employer] MEDICARE Advance Directives * Full Code - Default (Latest Code Status on File) Date Activated Date Inactivated Comments 09/26/2024 7:46 AM 09/26/2024 4:38 PM This is orde r is used when code status has not been discussed with the patient, or code status is otherwise unknown/unconfirmed To update the patient's code status, place a code status order. Do not modify or discontinue any currently active code status orders. * Full Code - Default Date Activated Date Inactivated Comments 09/26/2024 7:46 AM 09/26/2024 7:46 AM This is orde r is used when code status has not been discussed with the patient, or code status is otherwise unknown/unconfirmed To update the patient's code status, place a code status order. Do not modify or discontinue any currently active code status orders. Care Teams Threshing Department Supervisor Relationship Specialty Start Date End Date Jed Montiel MD [address] [place] [address] PCP - General Internal Medicine 07/04/24
--- OUTSIDE RECORDS SUMMARY | 2024-10-14 16:16 | XMS_ITS | Data Portability ---
Author Organization [place] [facility], Allergy Address [address] [place] [address] Care Team Providers Care Linux Devops Engineer Name Role Phone ARIN MONTIEL Primary Care Provider Assessment Encounter Date Assessment Date Assessment LastModified by Organization Details LastModified Time 04/21/2024 04/21/2024 Patient seen for possible sudden hearing loss. She was treated with antibiotics for her right ear last week. She notes hearing is almost back to normal. Examination shows no middle ear fluid. Audiometric testing shows just a slight conductive component in the left ear compared to the right with reduced compliance on tympanometry. Suggest fluticasone nasal spray 2 sprays each nostril once daily. Contact me if she has any persistent or worsening symptoms wally Not available 04/21/2024 09:43:18 Plan of Treatment Reminders Order Date Submit Date Provider Last Modified By Organization Details Last Modified Time Details Appointments Hearing Test 2024 01:30P M Hearing Test Not available Not available Not available New Patient 30 2024 02:00P M ABISAI IVEY MD Not available Not available Not available Lab None recorded . Referral None recorded . Procedures None recorded . Surgeries None recorded . Imaging None recorded . Medication Orders None recorded . Patient TargetsNo targets recorded. Patient InstructionsNo instructions recorded. Reason for Referral None Reported. Results Created Date Observation Date Name Description Value Unit Range Abnormal Flag Note LastModifiedBy Organization Detail LastModifiedTime 04/22/20 24 audio gram No observ ation record ed. [email or web address] Not Available 04/04 12:02:13 Result Notes None recorded. 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 Nontoxic single thyroid nodule; Note: Date Diagnosed : 12/02/2016 11:39 AM (E04.1) Not Available [facility] 4 02:55:47 Mass of neck 209621263 Active 2016 Localized swelling, mass and lump, neck; Note: Date Diagnosed : 12/02/2016 11:41 AM (R22.1) Not Available [facility] 4 02:55:44 Neck swelling 224151065 Active 2016 Localized swelling, mass and lump, neck; Note: Date Diagnosed : 12/02/2016 11:41 AM (R22.1) Not Available [facility] 4 02:55:44 Oropharyn geal dysphagia 48436075 Active 2016 Dysphagia , oropharyn geal phase; Note: Date Diagnosed : 12/02/2016 11:39 AM (R13.12) Not Available [facility] 4 02:55:45 Abnormal auditory perceptio n 20577842 Active 2023 ABISAI SIMON MD [address] [address], [place], [address] , [place] [facility] 4 08:48:28 Abnormal auditory perceptio n 95953538 Active 2023 ABISAI SIMON MD [address] [facility] [place] [address], [place], [address] , [place] - [facility] 4 08:48:38 Disorder of left Eustachia n tube 73224566316 70653 Active 2023 EVANS ETIENNE [place], SOWMYA-Dillan [address] [place] [address], [place], [address] , [facility] - [facility] 4 09:17:09 Problem Notes None recorded. Procedures Surgical History Date Name Laterality Status Provider Name and Address Organization Details Recorded Time 4 Comp Audio with Tymps (05717 & 40912) completed EVANS ETIENNE [place], CCC-A [address], [place], [address], [facility] - [facility] 04/21/2024 09:16:49 procedure on gallbladder completed Jeff Hutchins [place] [facility] 04/21/2024 08:39:02 total knee replacement completed ABISAI DIAZ MD [address] [place] [address], [place], [address], [facility] - [facility] 04/21/2024 08:45:27 Imaging Results Imaging Date Name Status [facility] by [facility] Details LastModified Time 04/22/2024 audiogram completed Information n ot available 04/22/2024 12:02:13 Procedure Notes None recorded. Medical Equipment None Reported. Allergies Allergen ID Allergen Name Allergen Category Reaction Reaction Severity Criticality Documentation Date Start Date Code Code System Note Provider Name and Address Organization Details Recorded Time 389228 Humira medicatio n Not available Not available Not available 04/21/2024 42756 4 RxNorm Jeff olivarez [place] [facility] 4 08:39:24 105109 Remicade medicatio n Not available Not available Not available 04/21/2024 25151 0 RxNorm Jeff olivarez [place] [facility] 4 08:39:36 Medications Name Sig Start Date Stop Date Status Note LastModified by Organization Details LastModified Time cyanocoba meño (vit B-12) ER 1,000 mcg tablet,ex tended release TAKE 1 TABLET BY MOUTH TWICE A DAY active Not Available Not Available No t Available doxepin 25 mg capsule 04/21 completed Medicati on ID: [id number] D uration Value: 30 Brand Name: doxepin Send Method: E-Prescr ibed Sub s Allowed: subs OK Medic ationGen ericName : doxepin Not Available Not Available Not Available ondansetr on HCl 8 mg tablet TAKE 1 TABLET BY MOUTH EVERY DAY NEEDED FOR 30 DAYS ORALLY ONCE A DAY 15 DAYS active Not Available Not Available No t Available meloxicam 15 mg tablet active Not Available Not Available Not Available sulfameth oxazole 800 mg-trimet hoprim 160 mg tablet TAKE 1 TABLET BY MOUTH TWICE A DAY FOR 3 DAYS active Not Available Not Available No t Available doxycycli ne monohydra te 100 mg tablet TAKE 1 TABLET BY MOUTH TWICE A DAY WITH FOOD FOR 5 DAYS active Not Available Not Available No t Available levothyro xine 75 mcg tablet TAKE 1 TABLET BY MOUTH EVERY DAY active Not Available Not Available No t Available alendrona te 35 mg tablet TAKE 1 TABLET BY MOUTH ONCE WEEKLY 30 MINUTES BEFORE FIRST FOOD/DYLAN ERAGE/ME DICINE WITH PLAIN WATER active Not Available Not Available No t Available levothyro xine 88 mcg tablet TAKE 1 TABLET BY MOUTH EVERY DAY active Not Available Not Available No t Available hydromorp yeni 2 mg tablet TAKE 1 TABLET BY MOUTH EVERY 6 HOURS active Not Available Not Available No t Available famotidin e 20 mg tablet TAKE 1 TABLET BY MOUTH DAILY AND A 2ND DOSE AT BEDTIME IF NEEDED active Not Available Not Available No t Available methocarb maxine 750 mg tablet TAKE 1 TABLET BY MOUTH EVERY 12 HOURS NEEDED active Not Available Not Available No t Available lidocaine 5 % topical patch APPLY 1 PATCH TOPICALL Y ONCE DAILY, 12 HOURS ON, 12 HOURS OFF active Not Available Not Available No t Available vitamin B complex tablet active Medicati on ID: [id number] B rand Name: vitamin B complex Send Method: E-Prescr ibed Sub s Allowed: subs OK Medic ationGen ericName : vitamin B complex Not Available Not Available Not Available furosemid e 20 mg tablet TAKE 1 TABLET BY MOUTH EVERY DAY FOR 30 DAYS active Not Available Not Available No t Available cyanocoba meño (vit B-12) ER 2,000 mcg tablet,ex tended release TAKE 1 TABLET BY MOUTH EVERY DAY FOR 90 DAYS active Not Available Not Available No t Available methylpre dnisolone 4 mg tablets in a dose pack TAKE 6 TABLETS ON DAY 1 DIRECTED ON PACKAGE AND DECREASE BY 1 TAB EACH DAY FOR A TOTAL OF 6 DAYS active Not Available Not Available No t Available hydromorp yeni 4 mg tablet TAKE 1 TABLET BY MOUTH EVERY 6 HOURS NEEDED FOR PAIN active Not Available Not Available No t Available oxycodone 5 mg tablet TAKE 1 TO 2 TABLETS BY MOUTH EVERY 4 TO 6 HOURS NEEDED FOR PAIN (MAX OF 8 TABS PER DAY) active Not Available Not Available No t Available oxycodone 10 mg tablet TAKE 1/2 TO 1 TABLET BY MOUTH FOUR TIMES A DAY FOR PAIN (TAKE 3 AND 1/2 TABS DAILY IN DIVIDED DOSES) active Not Available Not Available No t Available Stelara 45 mg/0.5 mL subcutane ous syringe 2014 active Medicati on ID: [id number] D uration Value: 84 Brand Name: Billy Ferguson Method: E-Prescr ibed Sub s Allowed: subs OK Medic ationGen ericName : Billy Not Available Not Available Not Available tranexami c acid 650 mg tablet active Not Available Not Available Not Available Rinvoq 30 mg tablet,ex tended release active Not Available Not Available Not Available Vitals Date Recorded Body height Body mass index (BMI) Body weight Provider Name and Address Organization Details Last Updated DateTime 04/21/2024 160.02 cm 25.5 kg/m2 04672.3 g Jeff Gregorio [facility] 04/21/2024 08:37:22 Social History None recorded. Functional Status None recorded. Mental Status None recorded. Family History Nothing Reported. Medical History Condition Response Liver Disease Y Arthritis Y Thyroid Problems Y Gynecological HistoryNo gynecological history recorded. Obstetrics History GPAL:G 0 P 0 0 0 0 Past Encounters Encounter ID Performer Location Encounter Start Date Encounter Closed Date Diagnosis/Indication Diagnosis SNOMED-CT Code Diagnosis ICD10 Code Diagnosis Note [id number] ABISAI SIMON MD [facility] [address] [address] 04/21/2024 08:19:37 04/21/2024 09:46:37 Abnormal auditory perception 89622104 H93.292 Disorder o f left Eustachian tube 5552938405 100969 H69.92 Audiologic al evaluation results: Right ear: {{Normal N ormal through 2 kHz Mild M oderate Mo derately-s evere Sarah Beth re Profoun d Normal hearing thru 3000Hz#}} {{hearing sloping to a mild slopi ng to a moderate s loping to moderately severe slo ping to severe slo ping to profound f lat high frequency low frequency mid frequency cookie bite salazar curve slop ing to a mild SNHL #}} {{with* se nsorineura l hearing loss with condu ctive hearing loss with mixed hearing loss with}} {{excellen t* good fa ir poor no measurable }} word recognitio n. Left ear: {{Normal N ormal through 2 kHz Mild M oderate Mo derately-s evere Sarah Beth re Profoun d Normal hearing thru 4000Hz#}} {{hearing sloping to a mild slopi ng to a moderate s loping to moderately severe slo ping to severe slo ping to profound f lat high frequency low frequency mid frequency cookie bite salazar curve with a mild loss at 8000Hz#}} {{with* se nsorineura l hearing loss with condu ctive hearing loss with mixed hearing loss with}} {{excellen t* good fa ir poor no measurable }} word recognitio n. Tympanomet ry: Right Ear:{{Type A* Type As Type Ad Type C Type C, shallow & rounded Ty pe B Type B with large volume Cou ld not maintain a hermetic seal}} Left Ear:{{Type A Type As Type Ad Type C Type C, shallow & rounded Ty pe B Type B with large volume Cou ld not maintain a hermetic seal Type A (rounded; -115)#}} [id number] EVANS ETIENNE MA, CCC-A [facility] [address] [address] 04/21/2024 09:16:16 04/21/2024 11:52:04 Disorder of left Eustachian tube 2377285982 601133 H69.92 Audiologic al evaluation results: Right ear: {{Normal N ormal through 2 kHz Mild M oderate Mo derately-s evere Sarah Beth re Profoun d Normal hearing thru 3000Hz#}} {{hearing sloping to a mild slopi ng to a moderate s loping to moderately severe slo ping to severe slo ping to profound f lat high frequency low frequency mid frequency cookie bite salazar curve slop ing to a mild SNHL #}} {{with* se nsorineura l hearing loss with condu ctive hearing loss with mixed hearing loss with}} {{excellen t* good fa ir poor no measurable }} word recognitio n. Left ear: {{Normal N ormal through 2 kHz Mild M oderate Mo derately-s evere Sarah Beth re Profoun d Normal hearing thru 4000Hz#}} {{hearing sloping to a mild slopi ng to a moderate s loping to moderately severe slo ping to severe slo ping to profound f lat high frequency low frequency mid frequency cookie bite salazar curve with a mild loss at 8000Hz#}} {{with* se nsorineura l hearing loss with condu ctive hearing loss with mixed hearing loss with}} {{excellen t* good fa ir poor no measurable }} word recognitio n. Tympanomet ry: Right Ear:{{Type A* Type As Type Ad Type C Type C, shallow & rounded Ty pe B Type B with large volume Cou ld not maintain a hermetic seal}} Left Ear:{{Type A Type As Type Ad Type C Type C, shallow & rounded Ty pe B Type B with large volume Cou ld not maintain a hermetic seal Type A (rounded; -115)#}} Health Concerns Section Related Observation LastModified by Organization Detai ls LastModified Time None Recorded Concern Status LastModified by Organization Details LastModified Time None Recorded Advance Directives Directive None Recorded Payers Encounter Date Sequence Insurance Name Policy Number Policy Frances Covered Member ID Frances Member ID Guarantor Name 04/21/2024 1 MEDICARE B-[place]: [facility] Ivelisse A Rehbein [id number] Ivelisse Rehbein 04/21/2024 2 MEDICAID-[place]: [facility] Ivelisse Rehbein [id number] Ivelisse Rehbein 04/21/2024 1 MEDICARE B-[place]: [facility] Ivelisse A Rehbein [id number] Ivelisse Rehbein 04/21/2024 2 MED[place]: [facility] Ivelisse Rehbein [id number] Ivelisse Rehbein Notes Date Note Type Note Provider Name and Address Organization Details Recorded Time 04/21/2024 text/html Patient presents with 2 weeks of hearing loss in the left ear. Reports being seen by her PCP and treated with antibiotics for a right ear. She feels the hearing has come back but is still little bit off. Denies any drainage or recent upper respiratory tract infection. No history of asthma but she does have chronic nasal congestion and postnasal drip for which she takes Nasacort. She has a history of autoimmune hepatitis and arthritis ABISAI DIAZ MD [address] [place] [address], [address], [facility] - [facility] 04/21/2024 09:44:20 OBGyn Episode No OBEpisode recorded.
--- OUTSIDE RECORDS SUMMARY | 2024-10-14 16:16 | XMS_ITS ---
Author Name [facility] Organization Unknown History of Medication Use Medication Directions Dispensed Refills Start Date End Date Stat benzocaine-menthol (CEPACOL) lozenge 1 lozenge 1 lozenge, Oral, Every 2 hours PRN, sore throat, Starting on Thu10/07/23 at 1614 10/07/2023 active naloxone (NARCAN) injection 0.4 mg 0.4 mg, Intravenous, As needed, opioid reversal, Starting on Thu10/07/23 at 1614 10/07/2023 active alendronate (FOSAMAX) 35 MG tablet Q THURSDAY MORNING 08/24/2023 active oxyCODONE (Roxicodone) 5 MG immediate release tablet Take 1 tablet (5 mg total) by mouth every 4 (four) hours as needed for pain. 09/10/2023 10/09/2023 active acetaminophen (Tylenol 8 Hour Arthritis Pain) 650 MG CR tablet Take 2 tablets (1,300 mg total) by mouth every 8 (eight) hours as needed for pain. active senna-docusate (PERICOLACE) 8.6-50 MG Take 1 tablet by mouth 2 (two) times a day. Take while using narcotic pain medication to prevent constipation 10/07/2023 active methocarbamol (ROBAXIN) 750 MG tablet Take 1 tablet (750 mg total) by mouth every 6 (six) hours as needed (spasm). 10/07/2023 active metoclopramide (REGLAN) injection 10 mg 10 mg, Intravenous, Every 6 hours PRN, nausea, vomiting, Starting on Thu10/07/23 at 1423, PACU/FloorTo be given if zofran is ineffective. 10/07/2023 active famotidine (PEPCID) 20 MG tablet 2 (two) times a day as needed. 09/20/2023 active famotidine (PEPCID) 20 MG tablet 2 (two) times a day as needed. 09/20/2023 active oxyCODONE (ROXICODONE) immediate release tablet 15 mg 15 mg, Oral, Every 4 hours PRN, moderate pain (4-6), Starting on Thu10/07/23 at 1423, PACU/Floor 10/07/2023 active HYDROmorphone (DILAUDID) 2 MG tablet Take 2 tablets (4 mg total) by mouth every 6 (six) hours as needed. for pain 07/16/2023 active calcium carbonate (TUMS) chewable tablet 500 mg 500 mg, Chew, Every 4 hours PRN, indigestion, heartburn, Starting on Thu10/07/23 at 1614 10/07/2023 active Problems Problem Status Onset Date Problem Type Date of Resolution Source Osteoarthritis of right knee active EncounterDiagnosisAct [facility] COPD (chronic obstructive pulmonary disease) ([facility] active EncounterDiagnosisAct [facility] Asthma active EncounterDiagnosisAct [facility] Encounters Encounter Type Encounter Reason Primary Diagnosis Location Date Ambulatory Unilateral primary osteoarthritis, right knee Unilateral primary osteoarthritis, right knee [facility] 10/07/2023 Ambulatory Chronic obstructive pulmonary disease, unspecified Chronic obstructive pulmonary disease, unspecified [facility] 09/29/2023 Ambulatory [facility] 09/23/2023 Care Team Organization Name Specialty Phone Email Start Date End Da te [facility] 0 09/29/2023 [facility] 4 [facility] 4
--- OUTSIDE RECORDS SUMMARY | 2024-10-14 16:16 | XMS_ITS | Clinical Summary ---
Author Organization [facility] Address [address] [place] [address] Care Team Providers Care Broadcast Technician Name Role Phone Jed Brown MD Primary Care Provider + [phone] Allergies Active Allergy Reactions Criticality Noted Date Comments Adalimumab Other (See Comments) 02/19/2022 Other reaction(s): liver failure (per patient's report) Liver failure Infliximab 09/23/2023 Other reaction(s): Liver failure Sulconazole 09/23/2023 Other reaction(s): angioedema Medications Medication Sig Dispensed Refills Start Date End Date Status alendronate (FOSAMAX) 35 MG tablet Q THURSDAY MORNING 0 08/24/2023 Active famotidine (PEPCID) 20 MG tablet 2 (two) times a day as needed. 0 09/20/2023 Active levothyroxine (SYNTHROID) tablet 88 mcg Take 1 tablet (88 mcg total) by mouth daily. 0 08/03/2023 Active ondansetron (ZOFRAN) 8 MG tablet Take 1 tablet (8 mg total) by mouth every 8 (eight) hours as needed. 0 09/20/2023 Active Rinvoq 30 MG [id number]:R heumatoid Arthritis Take 1 tablet by mouth daily. 0 09/14/2023 Active cyproheptadine (PERIACTIN) 4 MG tablet Take 1 tablet (4 mg total) by mouth daily. 0 04/05/2013 Active Cyanocobalamin (VITAMIN B-12 PO) Take by mouth daily. 0 Active TURMERIC PO Take by mouth daily. 0 Active acetaminophen (Tylenol 8 Hour Arthritis Pain) 650 MG CR tablet Take 2 tablets (1,300 mg total) by mouth every 8 (eight) hours as needed for pain. 0 Active meloxicam (MOBIC) 15 MG tablet Take 1 tablet (15 mg total) by mouth daily. 15 tablet 0 10/08/2023 Active senna-docusate (PERICOLACE) 8.6-50 MG Take 1 tablet by mouth 2 (two) times a day. Take while using narcotic pain medication to prevent constipation 40 tablet 0 10/08/2023 Active methocarbamol (ROBAXIN) 750 MG tablet Take 1 tablet (750 mg total) by mouth every 6 (six) hours as needed (spasm). 50 tablet 0 10/08/2023 Active oxyCODONE (Roxicodone) 5 MG immediate release tablet Take 1 tablet (5 mg total) by mouth every 4 (four) hours as needed for pain. 40 tablet 0 10/08/2023 10/07/2024 Active Problems No known active problems Social History Tobacco Use Types Packs/Day Years Used Date Smoking Tobacco: Former Cigarettes 0.3 3 Q uit: 1988 Smokeless Tobacco: Never Alcohol Use Standard Drinks/Week Comments Not Currently 0 (1 standard drink = 0.6 oz pur e alcohol) Sex and Gender Information Value Date Recorded Sex Assigned at Female 09/23/2023 3:30 PM EST Gender Identity Female 09/23/2023 3:30 PM EST Sexual Orientation Straight 10/07/2023 7 :49 AM EST Job Start Date Occupation Industry Not on file Not on file Not on file Last Filed Vital Signs Vital Sign Reading Time Taken Comments Blood Pressure 125/70 10/09/2023 10:00 AM EST Pulse 89 10/09/2023 10:00 AM EST Temperature 36.8 ??C (98.2 ??F) 10/09/2023 10:[address] Respiratory Rate 16 10/09/2023 10:00 AM EST Oxygen Saturation 97% 10/09/2023 10:00 AM EST Inhaled Oxygen Concentration - - Weight 65.8 kg (145 lb) 10/07/2023 7:50 AM EST Height 160 cm (5' 3 ) 10/07/2023 7:50 AM EST Body Mass Index 25.69 10/07/2023 7:50 AM EST Plan of Treatment Health Maintenance Due Date Last Done Comments Hepatitis C Screening 1955 Depression Screening 1967 Preventative Health Evaluation 1973 DTap / Tdap / Td (1 - Tdap) 1974 Colon Cancer Screening (Colonoscopy) 2000 Breast Cancer Screening (Mammogram) 2005 Shingrix-Zoster Vaccine (1 o f 2) 2005 Fall Risk Assessment 2020 Osteoporosis Screening (DEXA Scan) 2020 Pneumococcal Vaccine (1 of 1 - PCV) 2020 COVID-19 Vaccine (3 - 2023-2 5 season) 2024 11/29/2020, 11/01/2020 Influenza Vaccine (#1) 2024 RSV Adult > 60+ Yrs or (1 - 1-dose 75+ series) 2030 Hepatitis B Vaccines Aged Out No long er eligible based on patient's age to complete this topic RSV Ped < 20 months Aged Out No longe r eligible based on patient's age to complete this topic Medical Devices Implanted Type Area Direct Entry Midwife Device Identifier Shelf Expiration Date Model / Serial / Lot Cement Bone Surg Simplex Radiopq Stry-Howm [id number] [id number] - [id number] Implanted:Qty: 1 on 10/07/2023 by Jack Brown MD at [facility] [place] and [facility] 10/31/2025 6191-1-010 / / [id number] Cement Bone Surg Simplex Radiopq Stry-Howm [id number] [id number] - [id number] Implanted:Qty: 1 on 10/07/2023 by Jack Brown MD at [facility] [place] and [facility] 10/31/2025 6191-1-010 / / [id number] Knee Cmpnt Fem Ps N German Rt Sz4 Stry-How [id number] - [id number] Implanted:Qty: 1 on 10/07/2023 by Jack Brown MD at [facility] [place] and [facility] Right: Knee [facility] [id number] 09/01/2028 5516-F-[id number] / / [id number] Knee Bsplt Triathlon Ti Sz 4 Stry-How [id number] - [id number] Implanted:Qty: 1 on 10/07/2023 by Jack Brown MD at [facility] [place] and [facility] Right: Knee [facility] [id number] 06/20/2028 5536-[id number]-400 / / [id number] Knee Insrt Tib Ts+ X3 #4 11mm Stry-Howm [id number] - [id number] Implanted:Qty: 1 on 10/07/2023 by Jack Brown MD at [facility] [place] and [facility] Right: Knee [facility] [id number] 06/12/2027 5537-G-[id number] / / [id number] Knee Ptla Asym Tritanium 32x10 Stry-How [id number] - [id number] Implanted:Qty: 1 on 10/07/2023 by Jack Brown MD at [facility] [place] and [facility] Right: Knee [facility] [id number] 05/02/2028 5552-L-320 / / [id number] Advance Directives For more information, please contact: [phone] Latest Code Status on File Code Status Date Activated Date Inactivated Comments Full Code 10/07/2023 10:02 AM 10/09/2023 6:30 PM This c ode status was ascertained in the following way: per living will or healthcare instructions . Code Status History Code Status Date Activated Date Inactivated Comments Full Code 10/07/2023 7:32 AM 10/07/2023 10:02 AM This c ode status was ascertained in the following way: per living will or healthcare instructions . Care Teams Broadcast Technician Relationship Specialty Start Date End Date Jed Brown MD [address] [place] [id number] PCP - General Internal Medicine 09/24/23
== END 2024-10-14 15:39 | disposition home or self-care (01) ==
LOC: HO.HPS 14:51
PROVIDERS: PCP Internal Medicine; Referring Provider Internal Medicine; Visit Provider Hospitalist
DX: R91.8 Other nonspecific abnormal finding of lung field (principal)
CPT/HCPCS: 99204

== ENCOUNTER → 2024-10-14 14:50 | Outpatient (BNVA) | payer MEDICARE, SELFPAY | PROVIDERS: PCP Internal Medicine; Referring Provider Internal Medicine; Visit Provider Hospitalist | DX: R91.8 Other nonspecific abnormal finding of lung field (principal) | CPT/HCPCS: 99202 ==

== ENCOUNTER 2025-03-14 15:16 | Outpatient (AMB) | payer MEDICARE, SELFPAY ==
--- NOTE | 2025-03-14 15:21 | MHC.OFFVIS ---
Vital Signs 03/14/25 15:22 Height 5 ft 2.5 in Weight 155 lb 6.814 oz BMI 28.0 BP 124/70 Blood Pressure Location Lt brachial Position Sitting Pulse 82 Pulse Source Pulse Oximeter Pulse Oximetry (%) 98 Oxygen Delivery Method Room Air Intake Visit Reasons: Pulmonary Nodule Porcelain Enameler Required: No Allergies infliximab (From Remicade) Allergy (Severe, Verified 03/14/25 15:25) liver failure adalimumab (From Humira) Allergy (Intermediate, Verified 03/14/25 15:25) liver failure HPI Comments Details: The patient is here for pulmonary evaluation. The patient is a 69 year woman with a history of mild intermittent asthma in addition to colitis on Rinvoq who apparently was in her usual state health until back in August when she started developing worsening respiratory symptoms. The patient did undergo viral testing and she did test positive for RSV. In addition to that she did have a CTA which I personally reviewed at [facility] back on 08/31/2024 demonstrating multiple areas of pulmonary nodules. In addition to that some degree of mosaic pattern from pneumonitis and her bronchiolitis. I also did compare to the CT scan that she had back in 2019 of the abdomen with lung cuts appear much clear with a slight nodular density in the left lower lobe. The largest nodule measuring 7 mm in size. Therefore, will plan to repeat the CT scan in 6 months from the last CT scan. Clinically the patient is doing well she still uses her inhaler once or twice a day. I did offer her maintenance inhaler, but, she feels like she is getting better and feels like the regular inhaler is enough at this time. If her symptoms were to worsen she can always call and we can provide her maintenance inhaler at that time. [facility] Medical History (Updated 11/10/24 @ 13:30 by Tee Young MD) Pulmonary nodules Social History Patient Tobacco Use Status: Former Tobacco user Review of Systems Const Denies fever(s) Eyes Reports no additional complaints ENT Reports no additional complaints and Reports neck pain Card Denies chest pain Resp Reports cough and Denies wheezing GI Reports as per HPI Musc Reports back pain and Reports neck pain Skin/Breast Denies rash Neuro Reports no additional complaints Nathan/Lymph Reports no additional complaints Aller/Immun Denies wheezing Physical Exam Vital Signs: Last Vital Signs Pulse 82 03/14/25 15:22 BP 124/70 03/14/25 15:22 Pulse Ox 98 03/14/25 15:22 Oxygen Delivery Method Room Air 03/14/25 15:22 BMI result Body Mass Index 28.0 Const General: comfortable HEENT Head: Yes normocephalic Neck Neck: Yes supple Chest Chest palpation & inspection: normal inspection of the chest Resp Effort & Inspection: normal respiratory effort Auscultation: clear to auscultation bilaterally Cardio Heart sounds: S1 normal heart sound present and S2 normal heart sound present GI Palpation (GI): Soft to palpation Skin General skin exam: no rashes or lesions noted Extrem General: No clubbing and No cyanosis Assessment & Plan Assessment & Plan (1) Pulmonary nodules: Code(s): R91.8 - Other nonspecific abnormal finding of lung field Category: Medical Plan Repeat CT chest in 10/2025 at [facility] F/U after CT chest Orders: Orders CT chest wo IV con 10/09/25 R91.1 - Solitary pulmonary nodule Coding Level of Care Code Est Pt Level 4 (90835) Diagnoses Pulmonary nodules R91.8 Time Spent (min) 17
[2025-03-14 15:22] VITALS: BP 124/70; PULSE 82; O2SAT 98; BMI 28.0
--- OUTSIDE RECORDS SUMMARY | 2025-03-14 16:09 | XMS_ITS | Clinical Summary ---
Author Organization [facility] Address [address] [place] [address] Phone Care Team Providers Care Splitter Head Name Role Phone Jed Montiel MD Primary Care Provider [phone] Allergies Active Allergy Reactions Criticality Noted Date [...] TABLET EVERY 4 TO 6 HOURS NEEDED. 4 Active famotidine (PEPCID) 20 mg tablet Take 1 Tablet by mouth. 4 Active cyanocobalamin (VITAMIN B-12) 100 mcg tablet Take 1 tablet (100 mcg total) by mouth 2 (two) times a day. Active levothyroxine (SYNTHROID, LEVOTHROID) 75 mcg tablet TAKE 1 TAB(S) ORALLY ONCE A DAY 3 Active alendronate (FOSAMAX) 35 mg tablet 1 Tablet. 4 Active ondansetron ODT (ZOFRAN-ODT) 8 mg disintegrating tablet TAKE 1 MG Daily 3 Active melatonin 3 mg tablet Take 1 Tablet by mouth. Active acetaminophen (TYLENOL 8 HOUR) 650 mg 8 hr tablet Take 2 Tablets by mouth. Active cholecalciferol (VITAMIN D-3) 25 mcg (1,000 unit) capsule Take 1 Capsule by mouth. Active furosemide (LASIX) 20 mg tablet or 30 days 4 Active cyproheptadine (PERIACTIN) 4 mg tablet Take 1 tablet (4 mg total) by mouth 2 (two) times a day if needed. Active naloxone (NARCAN) 4 mg/0.1 mL nasal spray Administer 1 each (4 mg total) into affected nostril(s). 2 Active albuterol HFA (PROAIR HFA ; PROVENTIL HFA ; VENTOLIN HFA) 90 mcg/actuation inhaler Inhale 2 puffs by mouth every 6 (six) hours if needed for wheezing. Active HYDROmorphone (DILAUDID) 2 mg tablet 1-2 tabs PO Q6 hours as needed for severe pain. 30 tablet 5 Active methocarbamoL (ROBAXIN) 500 mg tablet Take 1 tablet (500 mg total) by mouth 3 (three) times a day for 5 days. 15 tablet 5 Active Active Problems Problem Noted Date Diagnosed Date [...] in the future. Orthopedic: Dr. Montiel in [facility]. No cortisone injections in the low back, only knee. Patient had MRI lumbar spine 04/11/2024 with multilevel degenerative changes including multilevel DDD, L3-4 disc herniation causing moderate stenosis. I reviewed the MRI images with the patient and her on the computer. Dr. Bradford reviewed the MRI today as well. Ms. Major has chronic low back pain, difficulty walking [...] incision is healing nicely. I removed her kiaar today. She is pleased with her early [...] L3-4 disc herniation causing moderate stenosis. Ms. Major has persistent low back pain, is walking [...] pilaris 04/28/2024 Somatization disorder 04/28/2024 Biliary stricture ([facility] V28) 05/14/2021 Autoimmune hepatitis ([facility] V24, [facility] V28) 08/13/2014 Overview (06/20/2024): Autoimmune Hepatitis Gastroesophageal reflux disease 08/13/2014 Overview (06/20/2024): Esophageal Reflux Hypothyroidism 07/04/2013 Overview (06/20/2024): Hypothyroidism Encounters Date Type Department Care Team Description 03/05/2025 11:17 AM EDT - 03/05/2025 1:14 PM EDT Emergency [facility] Emergency [address] [place] [address] Ti Arango MD Closed head injury, initial encounter (Primary Dx) Discharge Disposition: Home or Self Care 01/26/2025 2:09 PM EDT - 01/26/2025 11:59 PM EDT Hospital Encounter [facility] Ultrasound [address] [place] [address] Leg swelling Discharge Disposition: Home or Self Care from [...] MMENT: EGD 03/24/05 Hiatal hernia Autoimmune hepatitis ([facility]/HC C V24, [facility]/HCC V28) DX:Autoimmune hepatitis (HCC ); COMMENT: Dx made at [facility] in 06/2012, incl liver bx and MRI.Begun on steroidsm, and f/u at [facility] in Aug. 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 Dr. Abreu Obstructive sleep apnea [...] Sign Reading Time Taken Comments Blood Pressure 128/86 03/05/2025 11:17 AM EDT Pulse 76 03/05/2025 11:17 AM EDT Temperature 36.2 C (97.2 F) 03/05/2025 11:17 AM EDT Respiratory Rate 18 03/05/2025 11:17 AM EDT Oxygen Saturation 100% 03/05/2025 11:17 AM EDT Inhaled Oxygen Concentration - - Weight 68.9 kg (152 lb) 03/05/2025 11:15 AM EDT Height 160 cm (5' 3 ) 03/05/2025 11:15 AM EDT Body Mass Index 26.93 03/05/2025 11:15 AM EDT Plan of Treatment Upcoming Encounters Date Type Department Care Team (Late st Contact Info) Description 03/28/2025 1:00 PM EDT Appointment [facility] Bone Density [address] [place] [id number] 05/12/2025 7:00 AM EDT Ancillary Procedure [facility] [address] [facility] [address] [place] [id number] Health Maintenance Due Date Last Done Comments Hepatitis A Vaccines (1 of 2 - Risk 2-dose series) 1974 Pneumococcal Vaccine: 50+ Years (1 of 2 - PCV) 1974 Hepatitis B Vaccines (1 of 3 - Risk 3-dose series) 2015 Zoster Vaccines (2 of 2) 02/18/2022 12/24/2021 Cholesterol Screening (Lipid Panel) 07/06/2022 Colorectal Cancer Screening: Colonoscopy 07/06/2022 Hepatitis C Screening 07/06/2022 Medicare Annual Wellness Visit 07/06/2022 Social Influencers of Health Screening 07/06/2022 COVID-19 Vaccine ( season) 2024 12/24/2021, 07/17/2021, 11/29/2020, Additional history exists Depression Screening 08/03/2024 Influenza Vaccine (#1) 2025 , 07/17/2021, 05/09/2020, Additional history exists Falls Risk Assessment 09/26/2025 09/26/2024 Hypertension/CHF/CAD Annual BMP Blood Test 02/27/2026 02/27/2025, 02/27/2025, 10/16/2024, Additional history exists DTaP,Tdap,and Td Vaccines (2 - Td or Tdap) 07/11/2026 07/11/2016 Breast Cancer Screening 07/25/2026 07/25/20, 07/22/2023, 10/09/2021 Osteoporosis Screening (Bone Density Screening) 10/10/2031 10/09/2021 RSV Immunization Adult Patients Completed 07/02/2023 HIB Vaccines Aged Out No [...] age to complete this topic Meningococcal B Vaccine Aged Out No l onger eligible based on patient's age to complete this topic RSV Immunization Patients Under 20 months Aged Out No longer eligible based on patient's age to complete this topic Varicella Vaccines Aged Out No longer eligible based on patient's age to complete this topic Goals Goal Patient Goal Type Associated Problems Recent Progress Patient-Stated? Author STG's 6 visits General Yes Edward Khan, PT Note: Pt is Independent and compliant with initial HEP. Pt will report sleeping 3 hours or more before waking up d/t neck pain. Pt will report neck pain that does not extend beyond B deltoid areas during IADL's. Pt will demonstrate a 10 degree increase in cerv flex, cerv ext and B cerv rotations. LTG's 12 visits General Yes Edward Khan, PT Note: Pt will be Independent and compliant with final HEP. Pt will report sleeping 5 hours or more before waking up d/t neck pain. Pt will report neck pain that does not extend beyond during IADL's. Pt will demonstrate a 15 degree increase in cerv flex, cerv ext and B cerv rotations. Medical Devices Implanted Type Area Obgyn Specialist Device Identifier Shelf Expiration Date Model / Serial / Lot Powder Surgifoam Absorb Gel - Sna - [id number] Implanted:Qty : 1 on 09/26/2024 by Lizett Bradford MD at [facility] [employer] N/A: Spine Cervical [employer] 05/10/20261977 / NA / [id number] Cement Bone Surg Simplex Radiopq Stry-Howm [id number] [id number] Implanted:Qty : 1 on 10/07/2023 by Jack Montiel MD [employer] 10/31/2025 6191-1- 010 / / [id number] Cement Bone Surg Simplex Radiopq Stry-Howm [id number] 4092 Implanted:Qty : 1 on 10/07/2023 by Jack Montiel MD [employer] 10/31/2025 6191-1- 010 / / [id number] Knee Cmpnt Fem Ps N German Rt Sz4 Stry-How [id number] Implanted:Qty : 1 on 10/07/2023 by Jack Montiel MD Right: Knee [employer] [id number] 09/01/2028 5516-F- 402 / / [id number] Knee Bsplt Triathlon Ti Sz 4 Stry-Howm 3732-[id number]-[id number] 2543 Implanted:Qty : 1 on 10/07/2023 by Jack Montiel MD Right: Knee [employer] [id number] 06/20/2028 5536-B- 400 / / [id number] Knee Insrt Tib Ts+ X3 #4 11mm Stry-Howm 1907-[id number] [id number] Implanted:Qty : 1 on 10/07/2023 by Jack Montiel MD Right: Knee [employer] [id number] 06/12/2027 5537-G- 411 / / [id number] Knee Ptla Asym Tritanium 32x10 Stry-Howm 0835-P-[id number] 6039 Implanted:Qty : 1 on 10/07/2023 by Jack Montiel MD Right: Knee [employer] [id number] 05/02/2028 5552-L- 320 / / [id number] Procedures Procedure Name Priority Date/Time Associated Diagnosis Comments XR KNEE 1-2 VIEWS RIGHT STAT 03/05/2025 11:54 AM EDT XR TIBIA FIBULA 2 VIEWS RIGHT STAT 03/05/2025 11:[address] HEAD WO CONTRAST STAT 03/05/2025 1 1:[address] CERVICAL SPINE WO CONTRAST STAT 03/05/2025 11:[address] MAXILLOFACIAL WO CONTRAST STAT 03/05/2025 11:49 AM EDT VAS US DUPLEX LOWER EXT VENOUS BILAT Routine 01/26/2025 2:42 PM EDT Leg swelling BASIC METABOLIC PANEL STAT 10/16/2024 8:21 PM EDT MG MAMMO DIGITAL SCREENING W MAHAD BILAT Routine 07/25/2024 2:33 PM EST Encounter for other screening for malignant neoplasm of breast Encounter for screening mammogram for malignant neoplasm of breast THERESA DEXA AXIAL SKELETON Routine 10/09/2021 12:20 PM EST Encounter for screening for osteoporosis from Last 3 Months or Most Recently Relevant to Health Maintenance Results * XR Tibia Fibula 2 Views Right (03/05/2025 11:54 AM EDT) Anatomical Region Laterality Modality Lower Extremities, Lower Leg Right Rad iographic Imaging 03/05/2025 12:4 5 PM EDT Impressions 03/05/2025 12:46 PM EDT FINDINGS/IMPRESSION: No acute fracture or dislocation. Right knee arthroplasty. Achilles enthesophyte. No focal soft tissue swelling. Joint spaces are maintained. -------- FINAL REPORT -------- Dictated By: REJI POWELL Dictated Date: 03/05/2025 12:45 ET Assigned Physician: REJI POWELL Reviewed and Electronically Signed By: REJI POWELL Signed Date: 03/05/2025 12:46 ET Workstation ID: [id number] Transcribed By: Self Edit Transcribed Date: 03/05/2025 12:45 ET Narrative 03/05/2025 12:46 PM EDT XR TIBIA FIBULA 2 VIEWS RIGHT INDICATION: Pain TECHNIQUE: XR TIBIA FIBULA 2 VIEWS RIGHT COMPARISON: No priors available. Procedure Note Reji Powell MD - 03/05/2025 XR TIBIA FIBULA 2 VIEWS RIGHT INDICATION: Pain TECHNIQUE: XR TIBIA FIBULA 2 VIEWS RIGHT COMPARISON: No priors available. IMPRESSION: FINDINGS/IMPRESSION: No acute fracture or dislocation. Right kneearthroplasty. Achilles enthesophyte. No focal soft tissue swelling.Joint spaces are maintained. -------- FINAL REPORT -------- Dictated By: ERJI POWELL Dictated Date: 03/05/2025 12:45 ET Assigned Physician: REJI POWELL Reviewed and Electronically Signed By: REJI POWELL Signed Date: 03/05/2025 12:46 ET Workstation ID: [id number] Transcribed By: Self Edit Transcribed Date: 03/05/2025 12:45 ET Ti Arango MD IMG XR PROCEDURES Final Result * XR Knee 1-2 Views Right (03/05/2025 11:54 AM EDT) Anatomical Region Laterality Modality Lower Extremities, Knee Right Radiogra phic Imaging 03/05/2025 12:4 5 PM EDT Impressions 03/05/2025 12:45 PM EDT FINDINGS/IMPRESSION: Right knee arthroplasty in anatomic alignment. No fracture or evidence of hardware loosening. No joint effusion or focal soft tissue swelling. -------- FINAL REPORT -------- Dictated By: REJI POWELL Dictated Date: 03/05/2025 12:45 ET Assigned Physician: REJI POWELL Reviewed and Electronically Signed By: REJI POWELL Signed Date: 03/05/2025 12:45 ET Workstation ID: [id number] Transcribed By: Self Edit Transcribed Date: 03/05/2025 12:45 ET Narrative 03/05/2025 12:45 PM EDT XR KNEE 1-2 VIEWS RIGHT INDICATION: Pain TECHNIQUE: XR KNEE 1-2 VIEWS RIGHT COMPARISON: No priors available. Procedure Note Reji Powell MD - 03/05/2025 XR KNEE 1-2 VIEWS RIGHT INDICATION: Pain TECHNIQUE: XR KNEE 1-2 VIEWS RIGHT COMPARISON: No priors available. IMPRESSION: FINDINGS/IMPRESSION: Right knee arthroplasty in anatomic alignment. Nofracture or evidence of hardware loosening. No joint effusion or focalsoft tissue swelling. -------- FINAL REPORT -------- Dictated By: REJI POWELL Dictated Date: 03/05/2025 12:45 ET Assigned Physician: REJI POWELL Reviewed and Electronically Signed By: REJI POWELL Signed Date: 03/05/2025 12:45 ET Workstation ID: [id number] Transcribed By: Self Edit Transcribed Date: 03/05/2025 12:45 ET us Ti Arango MD IMG XR PROCEDURES Final Result * CT Cervical Spine wo Contrast (03/05/2025 11:49 AM EDT) Anatomical Region Laterality Modality Spine, C-spine Computed Tomogra phy 03/05/2025 12:2 6 PM EDT Impressions 03/05/2025 12:29 PM EDT No acute cervical spine fracture. -------- FINAL REPORT -------- Dictated By: REJI POWELL Dictated Date: 03/05/2025 12:26 ET Assigned Physician: REJI POWELL Reviewed and Electronically Signed By: REJI POWELL Signed Date: 03/05/2025 12:29 ET Workstation ID: [id number] Transcribed By: Self Edit Transcribed Date: 03/05/2025 12:26 ET Narrative 03/05/2025 12:29 PM EDT PROCEDURE: Cervical spine CT INDICATION: Pain, trauma TECHNIQUE: Noncontrast CT of the cervical spine with multiplanar reformats. The examination was performed utilizing dose reduction techniques. Total DLP 2071 COMPARISON: 10/16/2024 FINDINGS: No acute fracture or prevertebral swelling. Defect in the posterior elements at C3-4, unchanged and likely postsurgical. Unchanged cervical alignment with mild anterolisthesis at C4-5 and C7-T1 related to degenerative facet arthritis. Dextroconvex upper cervical curvature. Degenerative fusion across the C3-4 facet joints, unchanged. Multilevel degenerative changes are seen throughout the cervical spine with uncovertebral spurring and facet arthropathy present. Paraspinal muscles are within normal limits. Multinodular goiter. No pneumothorax at the lung apices. Procedure Note Reji Powell MD - 03/05/2025 PROCEDURE: Cervical spine CT INDICATION: Pain, trauma TECHNIQUE: Noncontrast CT of the cervical spine with multiplanarreformats. The examination was performed utilizing dose reduction techniques. TotalDLP 2071 COMPARISON: 10/16/2024 FINDINGS: No acute fracture or prevertebral swelling. Defect in the posterior elements at C3-4, unchanged and likelypostsurgical. Unchanged cervical alignment with mild anterolisthesis at C4-5 and C7-N6bvdaubo to degenerative facet arthritis. Dextroconvex upper cervicalcurvature. Degenerative fusion across the C3-4 facet joints, unchanged. Multilevel degenerative changes are seen throughout the cervical spinewith uncovertebral spurring and facet arthropathy present. Paraspinal muscles are within normal limits. Multinodular goiter. Nopneumothorax at the lung apices. IMPRESSION: No acute cervical spine fracture. -------- FINAL REPORT -------- Dictated By: REJI POWELL Dictated Date: 03/05/2025 12:26 ET Assigned Physician: REJI POWELL Reviewed and Electronically Signed By: REJI POWELL Signed Date: 03/05/2025 12:29 ET Workstation ID: [id number] Transcribed By: Self Edit Transcribed Date: 03/05/2025 12:26 ET Ti Arango MD IM CT PROCEDURES Final Result * CT Maxillofacial wo Contrast (03/05/2025 11:49 AM EDT) Anatomical Region Laterality Modality Head and Neck Computed Tomogra phy 03/05/2025 12:2 9 PM EDT Impressions 03/05/2025 12:32 PM EDT No acute facial bone fracture or retrobulbar hematoma. -------- FINAL REPORT -------- Dictated By: REJI POWELL Dictated Date: 03/05/2025 12:29 ET Assigned Physician: REJI POWELL Reviewed and Electronically Signed By: REJI POWELL Signed Date: 03/05/2025 12:32 ET Workstation ID: [id number] Transcribed By: Self Edit Transcribed Date: 03/05/2025 12:29 ET Narrative 03/05/2025 12:32 PM EDT PROCEDURE: CT of the face INDICATION: Fall, pain TECHNIQUE: Noncontrast CT of the face with multiplanar reformats. The examination was performed utilizing dose reduction techniques. Total DLP 2071 COMPARISON: No priors available. FINDINGS: No acute fracture. Sinuses are clear. Bilateral lens implants. Globes are intact. No retrobulbar hematoma. No focal soft tissue swelling or fluid collection. Skull base soft tissues are within normal limits. Procedure Note Reji Powell MD - 03/05/2025 PROCEDURE: CT of the face INDICATION: Fall, pain TECHNIQUE: Noncontrast CT of the face with multiplanar reformats. The examination was performed utilizing dose reduction techniques. TotalDLP 2071 COMPARISON: No priors available. FINDINGS: No acute fracture. Sinuses are clear. Bilateral lens implants. Globes are intact. No retrobulbar hematoma. No focal soft tissue swelling or fluid collection. Skull base soft tissues are within normal limits. IMPRESSION: No acute facial bone fracture or retrobulbar hematoma. -------- FINAL REPORT -------- Dictated By: REJI POWELL Dictated Date: 03/05/2025 12:29 ET Assigned Physician: REJI POWELL Reviewed and Electronically Signed By: REJI POWELL Signed Date: 03/05/2025 12:32 ET Workstation ID: [id number] Transcribed By: Self Edit Transcribed Date: 03/05/2025 12:29 ET Ti Arango MD [facility] [place] PROCEDURES Final Result * CT Head wo Contrast (03/05/2025 11:49 AM EDT) Anatomical Region Laterality Modality Head and Neck Computed Tomogra phy 03/05/2025 12:2 2 PM EDT Impressions 03/05/2025 12:37 PM EDT No acute intracranial abnormality -------- FINAL REPORT -------- Dictated By: REJI POWELL Dictated Date: 03/05/2025 12:22 ET Assigned Physician: REJI POWELL Reviewed and Electronically Signed By: REJI POWELL Signed Date: 03/05/2025 12:37 ET Workstation ID: [id number] Transcribed By: Self Edit Transcribed Date: 03/05/2025 12:22 ET Narrative 03/05/2025 12:37 PM EDT PROCEDURE: HEAD CT INDICATION: Pain, injury TECHNIQUE: CT of the head without intravenous contrast. Multiplanar reformats. The examination was performed utilizing dose reduction techniques. Total DLP 2071 COMPARISON: No priors available. FINDINGS: No acute territorial infarct, mass effect, or intracranial hemorrhage. Mild scattered periventricular and subcortical white matter hypodensities are most likely related to chronic small vessel ischemic change. Mild diffuse cerebral volume loss with prominence of ventricles and sulci. No hydrocephalus. Mastoid air cells are clear. No scalp hematoma or skull fracture. Procedure Note Reji Powell MD - 03/05/2025 PROCEDURE: HEAD CT INDICATION: Pain, injury TECHNIQUE: CT of the head without intravenous contrast. Multiplanarreformats. The examination was performed utilizing dose reductiontechniques. Total DLP 2071 COMPARISON: No priors available. FINDINGS: No acute territorial infarct, mass effect, or intracranial hemorrhage. Mild scattered periventricular and subcortical white matter hypodensitiesare most likely related to chronic small vessel ischemic change. Mild diffuse cerebral volume loss with prominence of ventricles and sulci.No hydrocephalus. Mastoid air cells are clear. No scalp hematoma or skull fracture. IMPRESSION: No acute intracranial abnormality -------- FINAL REPORT -------- Dictated By: REJI POWELL Dictated Date: 03/05/2025 12:22 ET Assigned Physician: REJI POWELL Reviewed and Electronically Signed By: REJI POWELL Signed Date: 03/05/2025 12:37 ET Workstation ID: [id number] Transcribed By: Self Edit Transcribed Date: 03/05/2025 12:22 ET us Ti Arango MD [facility] [place] PROCEDURES Final Result * Vascular US duplex lower extremity venous bilateral (01/26/2025 2:42 PM EDT) Anatomical Region Laterality Modality Vascular, Abdomen Ultrasound 01/26/2025 2:49 PM EDT Impressions 01/26/2025 2:50 PM EDT NO RIGHT OR LEFT LOWER EXTREMITY DEEP VENOUS THROMBOSIS. -------- FINAL REPORT -------- Dictated By: Ruy Clark Dictated Date: 01/26/2025 14:49 ET Assigned Physician: Ruy Clark Reviewed and Electronically Signed By: Ruy Clark Signed Date: 01/26/2025 14:50 ET Workstation ID: [id number] Transcribed By: Self Edit Transcribed Date: 01/26/2025 14:49 ET Narrative 01/26/2025 2:50 PM EDT PROCEDURE: VAS US DUPLEX LOWER EXT VENOUS BILAT INDICATION: leg swelling r/o dvt TECHNIQUE: 2-D and color Doppler imaging of the lower extremity venous vasculature with compression and augmentation maneuvers. COMPARISON: No priors available. FINDINGS: RIGHT: There is normal flow, compression, and augmentation from the common femoral through the popliteal vein. Visualized calf veins unremarkable. LEFT: There is normal flow, compression, and augmentation from the common femoral through the popliteal vein. Visualized calf veins unremarkable. Procedure Note Ruy Clark MD - 01/26/2025 PROCEDURE: VAS US DUPLEX LOWER EXT VENOUS BILAT INDICATION: leg swelling r/o dvt TECHNIQUE: 2-D and color Doppler imaging of the lower extremity venousvasculature with compression and augmentation maneuvers. COMPARISON: No priors available. FINDINGS: RIGHT: There is normal flow, compression, and augmentation from the commonfemoral through the popliteal vein. Visualized calf veins unremarkable. LEFT: There is normal flow, compression, and augmentation from the commonfemoral through the popliteal vein. Visualized calf veins unremarkable. IMPRESSION: NO RIGHT OR LEFT LOWER EXTREMITY DEEP VENOUS THROMBOSIS. -------- FINAL REPORT -------- Dictated By: Ruy Clark Dictated Date: 01/26/2025 14:49 ET Assigned Physician: Ruy Clark Reviewed and Electronically Signed By: Ruy Clark Signed Date: 01/26/2025 14:50 ET Workstation ID: [id number] Transcribed By: Self Edit Transcribed Date: 01/26/2025 14:49 ET Reanna SALAMANCA CV VASCULAR PROCEDURES Final Result * MG Mammo Digital Screening w Mahad bilat (07/25/2024 2:33 PM EST) Anatomical Region Laterality Modality Breast Bilateral Mammography 07/29/2024 7:37 AM EST Impressions 07/29/2024 7:42 AM EST No mammographic evidence of malignancy. A negative mammogram in the presence of a clinically suspicious palpable abnormality does not preclude the possibility of malignancy or alter the indications for biopsy. PQRI CPT II 3342F Code 79385, 16512 PQRI 225 CPT II 7025F TISSUE DENSITY: There are scattered areas of fibroglandular density. (BI-RADS category B) IMPRESSION: Benign. BI-RADS CATEGORY: 2 - BENIGN RECOMMENDATION: Screening bilateral mammogram is recommended in 1 year. Mammo Location: [facility], [address] [place] [address] -------- FINAL REPORT -------- Dictated By: Rodrigo Melendez Dictated Date: 07/29/2024 07:37 ET Assigned Physician: Rodrigo Melendez Reviewed and Electronically Signed By: Rodrigo Melendez Signed Date: 07/29/2024 07:42 ET Workstation ID: [id number] Transcribed By: Self Edit Transcribed Date: 07/29/2024 07:37 ET Narrative 07/29/2024 7:42 AM EST CLINICAL: The patient is a 69 years Female presenting for routine screening mammography. The patient has a history of left breast biopsy in 2008, pathology benign. COMPARISON: 07/22/2023 and 10/09/2021. TECHNIQUE: Full-field digital mammography of the breasts bilaterally consisting of tomosynthesis in MLO and CC projection is performed in the [employer] 2000-D unit. Computer aided detection utilizing the iCAD system was utilized. FINDINGS: The breasts are again seen to be composed of a combination of fatty and fibroglandular elements. Scattered benign rim calcifications, as well as vascular calcifications, are again seen. There is no suspicious cluster of microcalcifications, mass, or area of architectural distortion. There is no skin thickening or nipple retraction. Procedure Note Rodrigo Melendez MD - 07/29/2024 CLINICAL: The patient is a 69 years Female presenting for routinescreening mammography. The patient has a history of left breast biopsy [id number], pathology benign. COMPARISON: 07/22/2023 and 10/09/2021. TECHNIQUE: Full-field digital mammography of the breasts bilaterallyconsisting of tomosynthesis in MLO and CC projection is performed in the[employer] 2000-D unit. Computer aided detection utilizing the iCADsystem was utilized. FINDINGS: The breasts are again [...] for biopsy. PQRI CPT II 3342F Code 00617, 20862 PQRI 225 CPT II 7025F TISSUE DENSITY: There are scattered areas of fibroglandular density.(BI-RADS category B) IMPRESSION: Benign. BI-RADS CATEGORY: 2 - BENIGN RECOMMENDATION: Screening bilateral mammogram is recommended in 1 year. Mammo Location: [facility], [address] [place] [id number] -------- FINAL REPORT -------- Dictated By: Rodrigo Melendez Dictated Date: 07/29/2024 07:37 ET Assigned Physician: Rodrigo Melendez Reviewed and Electronically Signed By: Rodrigo Melendez Signed Date: 07/29/2024 07:42 ET Workstation ID: [id number] Transcribed By: Self Edit Transcribed Date: 07/29/2024 07:37 ET us Jed Montiel MD IMG BI PROCEDURES Final Resu lt * THERESA DEXA AXIAL SKELETON (10/09/2021 12:20 PM EST) Anatomical Region Laterality Modality Mammography 10/09/2021 10:0 9 AM EST Narrative 10/09/2021 12:20 PM EST [facility] Diagnostic Imaging Department [address] [place] [address] [id number] Patient: ALEKSANDR MAJOR D.O.B./Age/Sex: 1955 - 66 - F Unit#: [id number] Location/Status: [facility] CLI Mnemonic[facility] Ordering Physician: JED MONTIEL MD [facility] Dexa Axial Skeleton - 10/09/21 - 1045 History: Low estrogen state due to menopause. Psoriatic arthritis. Chronic glucocorticoid use. On omeprazole. Comparison: 12/29/13 Findings: Bone densitometry is performed utilizing dual energy x-ray absorptiometry (DXA) in the [employer] unit. The lumbar spine and proximal femora are evaluated in the AP projection. The FRAX questionaire was completed. The results indicate low bone mass (osteopenia), with a right femoral neck T- score of -2.4. There have been statistically significant decreases in bone mineral density in the spine and bilateral total femurs since the previous study. The detailed DEXA report will be mailed to the referring physician's office. DualFemur FRAX: 10-year Probability of Fracture: Major Osteoporotic 20.3 percent Hip 4.9 percent. IMPRESSION: Osteopenia. [id number] Dictating Physician: PRISCILLA MCNEAL MD Electronically Signed by: PRISCILLA MCNEAL MD Dic Date/Time: 10/09/21 1219 Sign date/Time: 10/09/21 1220 Procedure Note Priscilla Mcneal MD - 07/23/2022 [facility] Diagnostic Imaging Department [address] [place] [address] Patient: MARIANACASSIEALEKSANDR D.O.B./Age/Sex: 1955 - 66 - F Unit#: [id number] Location/Status: [facility] CLI Mnemonic[facility] Ordering Physician: JED MONTIEL MD [facility] Dexa Axial Skeleton - 10/09/21 - 1045 History: Low estrogen state due to menopause. Psoriatic arthritis.Chronic glucocorticoid use. On omeprazole. Comparison: 12/29/13 Findings: Bone densitometry is performed utilizing dual energy x-ray absorptiometry(DXA) in the [employer] unit. The lumbar spine and proximal femora [...] 20.3 percent Hip 4.9 percent. IMPRESSION: Osteopenia. [id number] Dictating Physician: PRISCILLA MCNEAL MD Electronically Signed by: PRISCILLA MCNEAL MD Dic Date/Time: 10/09/21 1219 Sign date/Time: 10/09/21 1220 Jed Montiel MD IM BI PROCEDURES Final Resu lt from Last 3 Months or Most Recently Relevant to Health Maintenance Insurance * Guarantor: Aleksandr Major Account Type Relation to Patient Date of Phone Billing Address Personal/Family Self 1955 [phone] (Work) [address] [place] [phone] MEDICAID - [place] [employer] MEDICARE Advance [...] currently active code status orders. Care Teams Splitter Head Relationship Specialty Start Date End Date Jed Montiel MD [address] [place] [id number] PCP - General Internal Medicine 07/04/24
--- OUTSIDE RECORDS SUMMARY | 2025-03-14 16:09 | XMS_ITS ---
[facility] Name [facility] Unknown History of Medication Use Medication Directions Dispensed Refills Start Date End Date Stat benzocaine-menthol (CEPACOL) lozenge 1 lozenge 1 lozenge, Oral, Every 2 hours PRN, sore throat, Starting on Thu10/07/23 at 1614 10/07/2023 active calcium carbonate (TUMS) chewable tablet 500 mg 500 mg, Chew, Every 4 hours PRN, indigestion, heartburn, Starting on Thu10/07/23 at 1614 10/07/2023 active methocarbamol (ROBAXIN) 750 MG tablet Take 1 tablet (750 mg total) by mouth every 6 (six) hours as needed (spasm). 10/07/2023 active metoclopramide (REGLAN) injection 10 mg 10 mg, Intravenous, Every 6 hours PRN, nausea, vomiting, Starting on Thu10/07/23 at 1423, PACU/FloorTo be given if zofran is ineffective. 10/07/2023 active naloxone (NARCAN) injection 0.4 mg 0.4 mg, Intravenous, As needed, opioid reversal, Starting on Thu10/07/23 at 1614 10/07/2023 active oxyCODONE (ROXICODONE) immediate release tablet 15 mg 15 mg, Oral, Every 4 hours PRN, moderate pain (4-6), Starting on Thu10/07/23 at 1423, PACU/Floor 10/07/2023 active senna-docusate (PERICOLACE) 8.6-50 MG Take 1 tablet by mouth 2 (two) times a day. Take while using narcotic pain medication to prevent constipation 10/07/2023 active famotidine (PEPCID) 20 MG tablet 2 (two) times a day as needed. 09/20/2023 active famotidine (PEPCID) 20 MG tablet 2 (two) times a day as needed. 09/20/2023 active oxyCODONE (Roxicodone) 5 MG immediate release tablet Take 1 tablet (5 mg total) by mouth every 4 (four) hours as needed for pain. 09/10/2023 10/09/2023 active alendronate (FOSAMAX) 35 MG tablet Q THURSDAY MORNING 08/24/2023 active HYDROmorphone (DILAUDID) 2 MG tablet Take 2 tablets (4 mg total) by mouth every 6 (six) hours as needed. for pain 07/16/2023 active acetaminophen (Tylenol 8 Hour Arthritis Pain) 650 MG CR tablet Take 2 tablets (1,300 mg total) by mouth every 8 (eight) hours as needed for pain. active Allergies Allergen Reaction Severity Comment Documented Date Source Statu s SULCONAZOLE Other reaction(s): angioedema 09/23/2023 CTTHSFRAN active ADALIMUMAB OTHER (SEE COMMENTS) Other reaction(s): liver failure (per patient's report),Liver failure 02/19/2022 CTTHSFRAN active INFLIXIMAB Other reaction(s): Liver failure CTTHSFRAN Problems Problem Status Onset Date Problem Type Date of Resolution Source COPD (chronic obstructive pulmonary disease) ([facility]) active [facility]Act [facility] Osteoarthritis of right knee active EncounterDiagnosisAct [facility] Asthma active [facility]Act [facility] Encounters Encounter Type Encounter Reason Primary Diagnosis Location Date Ambulatory Unilateral primary osteoarthritis, right knee Unilateral primary osteoarthritis, right knee [facility] 10/07/2023 Ambulatory Chronic obstructive pulmonary disease, unspecified Chronic obstructive pulmonary disease, unspecified [facility] 09/29/2023 Ambulatory [facility] 09/23/2023 Care Team Organization Name Specialty Phone Email Start Date End Da te [facility] 09/29/2023 02/14/2025 [facility] 4 02/14/2025 [facility] 4
--- OUTSIDE RECORDS SUMMARY | 2025-03-14 16:09 | XMS_ITS | Clinical Summary ---
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; pityriasis rubra pilaris Encounters Date Type Department Care Team Description 12/22/2024 6:33 AM EDT - 12/22/2024 11:59 PM EDT Hospital Encounter [facility], Pet/Ct - [address] [address] Tee Young MD Discharge Disposition: Home or Self Care 12/21/2024 Transcribe Orders Virtual Department [address] [place] [id number] Tee Young MD Solitary pulmonary nodule (Primary Dx) from Last 3 Months Immunizations Immunization Administration Dates Next Due Influenza, Unspecified Formulation 06/21(Deferred: Other),10/07/2011(Deferred: Other),09/12/2011(Deferred: Other) Pneumococcal polysaccharide PPSV23 06/21(Deferred: Other),10/07/2011(Deferred: Other - rec'd in 2010),09/12/2011(Deferred: Other - does not meet criteria) Social History Tobacco Use Types Packs/Day Years Used Date Smoking Tobacco: Former Comments:Quit smokin08/03 Education Answer Date Recorded Are you interested in more education? Not on marry e 12/21/2024 Are you concerned about learning? Not on file 12/21/2024 No 12/21/2024 No 12/21/2024 Digital Access Answer Date Recorded No 12/21/2024 No 12/21/2024 Reliable internet access at home? Not on file 12/21/2024 Device with a working camera? Not on file Comments Unknown Sex and Gender Information Value Date Recorded Sex Assigned at Not on file Legal Sex Female 6:31 PM EST Gender Identity Not on file Sexual Orientation Not on file Last Filed Vital Signs Vital Sign Reading Time Taken Comments Blood Pressure 106/56 11/24/2012 11:23 AM EDT Pulse 80 11/24/2012 11:23 AM EDT Temperature 37.1 C (98.8 F) 11/24/2012 11:23 AM EDT Respiratory Rate - - Oxygen Saturation - - Inhaled Oxygen Concentration - - Weight 69.9 kg (154 lb) 11/24/2012 11:23 AM EDT Height 158.8 cm (5' 2.5 ) 11/24/2012 11:23 AM ED T Body Mass Index 27.72 11/24/2012 11:23 AM EDT Plan of Treatment Not on file Medical Devices Not on file Procedures Procedure Name Priority Date/Time Associated Diagnosis Comments NM PET CT SKULL BASE TO MID THIGHS Routine 12/22/2024 7:51 AM EDT Solitary pulmonary nodule from Last 3 Months Results * NM PET CT Skull Base to Mid Thighs (12/22/2024 7:51 AM EDT) Anatomical Region Laterality Modality Positron Emissio n Tomography (PET) Narrative 12/22/2024 6:33 AM EDT [facility] PET [facility]ING Tee Young MD [facility] NM PET Final Result from Last 3 Months Insurance [facility] MEDICARE REPLACEMENT MEDICARE REPLACEMENT MEDICARE REPLACEMENT MEDICARE REPLACEMENT Member Subscriber Plan / Payer (Ef fective 2024-Present) Name:Ivelisse Wasserman Relation to Subscriber:Self Name:Ivelisse Wasserman Payer ID:[id number] (NAIC) Type:Medicare Address: [place] [id number] [facility] MEDICARE REPLACEMENT Member Subscriber Plan / Payer ( fective 2024-) Name:Ivan Wassermania Relation to Subscriber:Self Name:Ivelisse Wasserman Payer ID:[id number] (NAIC) Type:Medicare Address: [place] [id number] [facility] MEDICARE REPLACEMENT Care Teams Automatic Typewriter Inspector Relationship Specialty Start Date End Date Jed Brown MD [address] [place] [address] PCP - General 12/07/14 Additional Source Comments The information contained in this document represents components of the legal health record. It is not the complete legal health record.[facility]
--- OUTSIDE RECORDS SUMMARY | 2025-03-14 16:09 | XMS_ITS | Clinical Summary ---
Author Organization [facility] Address [address] [place] [address] Care Team Providers Care Bank Vault Clerk Name Role Phone eJd Brown MD Primary Care Provider + [phone] Allergies Active Allergy Reactions Criticality Noted Date [...] needed. 0 09/20/2023 Active Rinvoq 30 MG [id number]:Rh eumatoid Arthritis Take 1 tablet by mouth daily. 0 09/14/2023 Active cyproheptadine (PERIACTIN) 4 MG tablet Take 1 tablet (4 mg total) by mouth daily. 0 04/05/2013 Active Cyanocobalamin (VITAMIN B-12 PO) Take by mouth daily. 0 Active TURMERIC PO Take by mouth daily. 0 Act sun acetaminophen (Tylenol 8 Hour Arthritis Pain) 650 [...] needed (spasm). 50 tablet 0 10/08/2023 Active Active Problems No known active problems Social [...] 3:30 PM EST Sexual Orientation Straight 10/07/2023 7: 49 AM EST Job Start Date Occupation Industry Not on file Not on file Not on file Last Filed Vital Signs Vital Sign Reading Time Taken Comments Blood Pressure 125/70 10/09/2023 10:00 AM EST Pulse 89 10/09/2023 10:00 AM EST Temperature 36.8 C (98.2 F) 10/09/2023 10:00 AM EST Respiratory Rate 16 10/09/2023 10:00 AM EST [...] season) 2024 11/29/2020, 11/01/2020 Influenza Vaccine (#1) 2025 RSV Adult > 60+ Yrs or (1 - 1-dose 75+ series) 2030 Hepatitis B Vaccines Aged Out No long er eligible based on patient's age to complete this topic RSV Ped < 20 months Aged Out No longe r eligible based on patient's age to complete this topic Medical Devices Implanted Type Area Manager Instrumentation Device Identifier Shelf Expiration Date Model / Serial / Lot Cement Bone Surg Simplex Radiopq Stry-Howm [id number] 092 - [id number] Implanted:Qty: 1 on 10/07/2023 by Jack Brown MD at [facility] 10/31/2025 6191-1-010 / / [id number] Cement Bone Surg Simplex Radiopq Stry-Howm [id number] [id number] - [id number] Implanted:Qty: 1 on 10/07/2023 by Jack Brown MD at [facility] 10/31/2025 6191-1-010 / / [id number] Knee Cmpnt Fem Ps N German Rt Sz4 Stry-How [id number] - [id number] Implanted:Qty: 1 on 10/07/2023 by Jack Brown MD at [facility] Right: Knee [employer] [id number] 09/01/2028 5516-F-402 / / [id number] Knee Bsplt Triathlon Ti Sz 4 Stry-How [id number] 543 - [id number] Implanted:Qty: 1 on 10/07/2023 by Jack Brown MD at [facility] Right: Knee [employer] [employer] [id number] 06/20/2028 5536-B-400 / / [id number] Knee Insrt Tib Ts+ X3 #4 11mm Stry-Howm [id number] [id number] - [id number] Implanted:Qty: 1 on 10/07/2023 by Jack Brown MD at [facility] Right: Knee [employer] [id number] 06/12/2027 5537-G-[id number] / / [id number] Knee Ptla Asym Tritanium 32x10 Stry-How [id number] 039 - [id number] Implanted:Qty: 1 on 10/07/2023 by Jack Brown MD at [facility] Right: Knee [facility] [id number] 05/02/2028 5552-L-320 / / [id number] Advance Directives For more information, please contact: [phone] Latest Code Status on File Code Status [...] will or healthcare instructions . Care Teams Bank Vault Clerk Relationship Specialty Start Date End Date Jed Brown MD [address] [place] [id number] PCP - General Internal Medicine 09/24/23
--- OUTSIDE RECORDS SUMMARY | 2025-03-14 16:09 | XMS_ITS | Patient Health Record ---
Author Organization [facility] Address [address] [place] [address] Support Name Relationship Address Phone ALEKSANDR MAJOR Guarantor Unknown [phone] Reason For Referral No Information Medications Medication SIG (Take, Route, Fr equency, Duration) Notes Start Date End Date Status Levoxyl 75MCG 1 ORAL DAILY; Duration: -3 Rafael-MJ 2 Active Tylenol 325MG 1-2 ORAL every six h ours; Duration: -3 Rafael-MJ 09/30/2011 Active Lasix 40MG 1 ORAL daily; Duration: -3 Rafael-MJ 09/30/2011 Active Problems Problem Type SNOMED Code ICD Code Onset Dates Problem Status W/U Status Risk Notes Problem Hypothyroidism (34726040) Unspecified hypothyroidism (244.9) Active confirmed Major Problem Asthma (disorder) (557873991) Asthma, unspecified, unspecified status (493.90) Active confirmed Major Problem Menopausal symptom (68794145) Symptomatic menopausal or female climacteric states (627.2) Active confirmed Major Problem Gynecological examination normal (409069495462701) Routine gynecological examination (V72.31) Active confirmed Major Problem Screening for malignant neoplasm of colon (728902498) Special screening for malignant neoplasms, colon (V76.51) Active confirmed Major Plan Of Treatment No Information Insurance Providers Payer Name Payer Address Payer Phone Subscriber Number Group Number Insured Name Patient Relationship to Insured Coverage Start Date Coverage End Date [employer] [place] [address] [place] [address] [phone] [id number] ALEKSANDR MAJOR Self - patient is the insured
== END 2025-03-14 15:44 | disposition home or self-care (01) ==
LOC: HO.HPS 15:17
PROVIDERS: PCP Internal Medicine; Visit Provider Hospitalist
DX: R91.8 Other nonspecific abnormal finding of lung field (principal)
CPT/HCPCS: 99214

== ENCOUNTER → 2025-03-14 15:16 | Outpatient (BNVA) | payer MEDICARE, SELFPAY | PROVIDERS: PCP Internal Medicine; Visit Provider Hospitalist | DX: R91.8 Other nonspecific abnormal finding of lung field (principal) | CPT/HCPCS: 99212 ==